=== PATIENT | female | born 1945 | race Caucasian/White ===

== ENCOUNTER 2016-09-29 09:15 | Inpatient (IN) | payer MEDICARE ==
[2016-09-29] VITALS (14 sets, daily range): BP systolic 101–113; BP diastolic 61–74; PULSE 68–84; RESP 18–24; TEMP 97.8–98.1; O2SAT 96–100
[~2016-09-29] VITALS: Ht 172.7 cm; Wt 68.3 kg
[~2016-09-29 09:15] MED LIST: ADVI200T16 PO; ALDA25TA OR; ALEN70TA39 OR; AMOX500T PO; ASPI81TA11 OR; B COTAB3 PO; CALC-187 PO; CARV12.5 PO; CETI10 PO; COQ1200C3 OR; CRES10TA PO; FOSI10TA4 PO; FURO1TAB93 OR; GLUCTAB PO; LEVO.1 PO; MULTCAP2 OR; PROZ20CA11 PO; VALT1TAB26 PO; VITA200017 PO; VITATAB11 PO
[2016-09-29] MEDS ORDERED: ALPR0.5T3 PO (09:35)
[2016-09-29] MEDS ORDERED: AMIO200T PO ×2 (09:35→10:06)
--- NOTE | 2016-09-29 09:51 | PD ---
HPI Chief Complaint: General Weakness Time Seen by Provider: 09:49 Travel History International Travel<30 days: No Contact w/Intl Traveler<30days: No Traveled to known affect area: No History of Present Illness HPI 71-year-old female with history of bilateral mastectomy secondary to breast cancer, CHF secondary to valvular disease related to chemotherapy, new onset diabetes, currently awaiting evaluation for cardiac transplant, follows up with Dr. Nieves for cardiology, presents to the ER today for several days a worsening in shortness of breath, leg swelling, and general weakness. She had talked to Dr. Nieves and he told her to come in for further evaluation. She denies any fevers, chest pains, or any other symptoms. Modifying Factors: None Associated Signs & Symptoms: Shortness of breath, dyspnea on exertion, leg swelling bilaterally, general weakness Risk Factors: Long history of CHF, being evaluated for cardiac transplant PFSH Past Medical History Hx Anticoagulant Therapy: Yes Arthritis: Yes Asthma: No Atrial Fibrillation: Yes Autoimmune Disease: No Blood Disorders: No Anxiety: No Depression: No Heart Rhythm Problems: Yes Cancer: Yes (BREAST ) Cardiac Catheterization: Yes (08/06) Cardiomyopathy: Yes (IDIOPATHIC DIALATED CARDIOMYOPATHY) Cardiovascular Problems: Yes High Cholesterol: No Chemotherapy: Yes Chest Pain: Yes Congestive Heart Failure: Yes COPD: Yes Cerebrovascular Accident: No Coronary Artery Disease: Yes (2-D ECHO 08/13/06 WITH EF 25) Diabetes: Yes Patient Takes Glucophage: Yes Diminished Hearing: No Endocrine: Yes Gastrointestinal Disorders: No GERD: No Glaucoma: No Genitourinary: No Headaches: Yes Hepatitis: No Hiatal Hernia: No Heparin Induced Thrombocytopen: No Hypertension: No Immune Disorder: No Implanted Vascular Access Dvce: No Kidney Stones: No Medical other: Yes (HIGH CHOLESTEROL) Musculoskeletal: No Neurologic: No Psychiatric: Yes (DEPRESSION ,ANXIETY) Reproductive: No Respiratory: Yes Migraines: Yes Myocardial Infarction: No Radiation Therapy: Yes Renal Failure: No Seizures: No Sickle Cell Disease: No Sleep Apnea: No Thyroid Disease: Yes (HYPO) Ulcer: No Influenza Vaccination: Yes ?: Not Past Surgical History Abdominal Surgery: Yes (APPENDECTOMY, EXP LAP FOR RUPURED TUBAL PREGNANCIES) AICD: Yes Appendectomy: Yes Arteriovenous Shunt: No Cardiac Surgery: No (AICD,PACER) Cholecystectomy: Yes Ear Surgery: No Endocrine Surgery: No Eye Surgery: No Genitourinary Surgery: No Gynecologic Surgery: Yes (TOTAL ABDOMINAL HYSTERECTOMY WITY SALP AND OOPERECTOMIES) Hysterectomy: Yes Insulin Pump: No Joint Replacement: Yes (LT TOTAL HIP) Mastectomy: Yes (BILAT MAST, NO LYMPH LEFT) Neurologic Surgery: No Oral Surgery: Yes (TONSILLECTOMY) Pacemaker: Yes Thoracic Surgery: Yes (AICD,PACER) Tonsillectomy: Yes Tympanostomy Tube: Yes Other Surgery: Yes Social History Alcohol Use: No Tobacco Use: No Substance Use: No Allergies-Medications (Allergen,Severity, Reaction): Coded Allergies: Codeine (Verified Allergy, Severe, NAUSEA, 09/29/16) Epinephrine (Verified Allergy, Severe, PVC'S, 09/29/16) Uncoded Allergies: PAPER TAPE (Allergy, Severe, BLISTERS, 02/03/13) Reported Meds & Prescriptions Reported Meds & Active Scripts Active Reported Zzzquil (Diphenhydramine (Sleep)) 25 Mg Cap 25 Mg PO HS PRN Nasonex Nasal Quentin (Mometasone Furoate) 50 Mcg/Act Naspr 2 Quentin EACH NARE DAILY PRN Mucinex DM Maximum Strength (Dextromethorphan-Guaifenesin ER 12 HR) 60-1,200 Mg Tab 1 Tab PO DIRECTED PRN K-Tab (Potassium Chloride) 10 Meq Tab 10 Meq PO BID Digoxin 0.125 Mg Tab 0.125 Mg PO DAILY Eliquis (Apixaban) 2.5 Mg Tab 2.5 Mg PO BID Amiodarone (Amiodarone HCl) 200 Mg Tab 200 Mg PO DAILY Valtrex (Valacyclovir HCl) 1 Gm Tab 1,000 Mg PO DAILY PRN Synthroid (Levothyroxine Sodium) 112 Mcg Tab 112 Mcg PO DAILY Spironolactone 25 Mg Tab 25 Mg PO HS Metformin ER (Metformin HCl) 500 Mg Jana 500 Mg PO DAILY PC @1800 With evening meal Lasix (Furosemide) 40 Mg Tab 40 Mg PO BID Co Q-10 (Coenzyme Q10 (Ubidecarenone)) 200 Mg Cap 200 Mg PO HS Crestor (Rosuvastatin Calcium) 10 Mg Tab 10 Mg PO HS D3 2000 (Cholecalciferol) 2,000 Unit Tab 2,000 Units PO DAILY Zyrtec Allergy (Cetirizine HCl) 10 Mg Tab 10 Mg PO DAILY PRN Carvedilol 6.25 Mg Tab 6.25 Mg PO BID Tylenol Pm Extra Strength (Diphenhydramine-Acetaminophen) 25-500 Mg Tab 1 Tab PO HS PRN Alprazolam 0.5 Mg Tab 0.5 Mg PO DIRECTED PRN Review of Systems Except as stated in HPI: all other systems reviewed are Neg Physical Exam Narrative GENERAL: Well-nourished, well-developed elderly white female patient in mild respiratory distress, awake, oriented 3. SKIN: Warm and dry. Pale appearing. HEAD: Normocephalic. EYES: No scleral icterus. No injection or drainage. NECK: Supple, trachea midline. CARDIOVASCULAR: Regular rate and rhythm without murmurs, gallops, or rubs. RESPIRATORY: Breath sounds equal and decreased at the bases bilaterally. Mild accessory muscle use. GASTROINTESTINAL: Abdomen soft, non-tender, nondistended. MUSCULOSKELETAL: No cyanosis. Bilateral pitting edema the legs. BACK: Nontender without obvious deformity. No CVA tenderness. Data Data Last Documented VS Vital Signs Date Time Temp Pulse Resp B/P Pulse Ox O2 Delivery O2 Flow Rate FiO2 09/29/16 11:09 69 18 107/61 98 Nasal Cannula 2 09/29/16 09:16 97.8 Orders Electrocardiogram (09/29/16 ) Complete Blood Count With Diff (09/29/16 09:34) Comprehensive Metabolic Panel (09/29/16 09:34) Magnesium (Mg) (09/29/16 09:34) B-Type Natriuretic Peptide (09/29/16 09:34) Ckmb (Isoenzyme) Profile (09/29/16 09:34) Troponin I (09/29/16 09:34) Act Partial Throm Time (Ptt) (09/29/16 09:34) Prothrombin Time / Inr (Pt) (09/29/16 09:34) Urinalysis - C+S If Indicated (09/29/16 09:34) Chest, Single Ap (09/29/16 09:34) Ecg Monitoring (09/29/16 09:34) Iv Access Insert/Monitor (09/29/16 09:34) Oximetry (09/29/16 09:34) Sodium Chloride 0.9% Flush (Ns Flush) (09/29/16 09:45) Potassium Chloride Powder (Kcl Powder) (09/29/16 10:45) Ns + Kcl 20 Meq Inj (Ns + Kcl 20 Meq Inj (09/29/16 10:45) Furosemide Inj (Lasix Inj) (09/29/16 10:45) Admit Order (Ed Use Only) (09/29/16 10:56) Consult Cardiology (09/29/16 ) Labs Laboratory Tests Test 09/29/16 09:35 White Blood Count 7.0 TH/MM3 Red Blood Count 4.19 MIL/MM3 Hemoglobin 11.9 GM/DL Hematocrit 35.7 % Mean Corpuscular Volume 85.2 FL Mean Corpuscular Hemoglobin 28.5 PG Mean Corpuscular Hemoglobin 33.4 % Concent Red Cell Distribution Width 23.3 % Platelet Count 179 TH/MM3 Mean Platelet Volume 9.5 FL Neutrophils (%) (Auto) 60.6 % Lymphocytes (%) (Auto) 31.0 % Monocytes (%) (Auto) 8.0 % Eosinophils (%) (Auto) 0.0 % Basophils (%) (Auto) 0.4 % Neutrophils # (Auto) 4.3 TH/MM3 Lymphocytes # (Auto) 2.2 TH/MM3 Monocytes # (Auto) 0.6 TH/MM3 Eosinophils # (Auto) 0.0 TH/MM3 Basophils # (Auto) 0.0 TH/MM3 CBC Comment DIFF FINAL Differential Comment Prothrombin Time 14.7 SEC Prothromb Time International 1.3 RATIO Ratio Activated Partial 27.3 SEC Thromboplast Time Sodium Level 136 MEQ/L Potassium Level 3.3 MEQ/L Chloride Level 96 MEQ/L Carbon Dioxide Level 28.4 MEQ/L Anion Gap 12 MEQ/L Blood Urea Nitrogen 28 MG/DL Creatinine 1.64 MG/DL Estimat Glomerular Filtration 31 ML/MIN Rate Random Glucose 103 MG/DL Calcium Level 8.6 MG/DL Magnesium Level 2.1 MG/DL Total Bilirubin 2.4 MG/DL Aspartate Amino Transf 37 U/L (AST/SGOT) Alanine Aminotransferase 30 U/L (ALT/SGPT) Alkaline Phosphatase 183 U/L Total Creatine Kinase 48 U/L Troponin I 0.03 NG/ML B-Type Natriuretic Peptide 3211 PG/ML Total Protein 7.4 GM/DL Albumin 3.1 GM/DL MDM Medical Decision Making Medical Screen Exam Complete: Yes Emergency Medical Condition: Yes Medical Record Reviewed: Yes Interpretation(s) EKG shows atrial paced rhythm at a rate of 69 bpm with no signs of acute ST-T changes. Laboratory Tests Test 09/29/16 09:35 Red Cell Distribution Width 23.3 % (11.6-17.2) Prothrombin Time 14.7 SEC (9.8-11.6) Potassium Level 3.3 MEQ/L (3.5-5.1) Chloride Level 96 MEQ/L (98-107) Blood Urea Nitrogen 28 MG/DL (7-18) Creatinine 1.64 MG/DL (0.50-1.00) Estimat Glomerular Filtration 31 ML/MIN (>89) Rate Total Bilirubin 2.4 MG/DL (0.2-1.0) Alkaline Phosphatase 183 U/L (45-117) B-Type Natriuretic Peptide 3211 PG/ML (0-100) Albumin 3.1 GM/DL (3.4-5.0) Last 24 hours Impressions Chest X-Ray 09/29/16 0934 Signed Impressions: Service Date/Time: Thursday, September 29, 2016 09:56 - CONCLUSION: 1. Mild right lower lung infiltrate. 2. Interstitial changes bilaterally suggestive of chronic interstitial disease. However, some mild pulmonary edema can also have this appearance. There are no prior studies for comparison. Audi Crooks MD Differential Diagnosis Leg swelling, general weakness, shortness of breath and dyspnea on exertionCHF exacerbation versus electrolyte issues versus symptomatic anemia versus sepsis Narrative Course Exam, lab work, chest x-ray indicative of underlying CHF. Her potassium is also mildly low. Potassium was given in the ER IV and by mouth and Lasix was initiated. At this point, my plan would be to admit her for further treatment. The case is discussed with Dr. Rabago for admission. Consult was placed for Dr. Nieves, patient's molder machine. Diagnosis Primary Impression: CHF exacerbation Admitting Information Admitting Physician Requests: Admit Romero Rodgers MD Sep 29, 2016 09:51
[2016-09-29 09:53] LABS: AUTOMATED NEUTROPHIL # 4.3 TH/MM3 (1.8-7.7); BASOPHIL % 0.4 % (0.0-2.0); HEMATOCRIT 35.7 % (35.0-46.0); HEMO FLAGS DIFF FINAL; LYMPHOCYTE # 2.2 TH/MM3 (1.0-4.8); MEAN CELL VOLUME 85.2 FL (80.0-100.0); MEAN CORPUSCULAR HEMOGLOBIN 28.5 PG (27.0-34.0); MEAN CORPUSCULAR HGB CONC 33.4 % (32.0-36.0); NEUT % 60.6 % (16.0-70.0); PLATELET COUNT 179 TH/MM3 (150-450); RED BLOOD COUNT 4.19 MIL/MM3 (4.00-5.30); RED CELL DISTRIBUTION WIDTH 23.3 % (11.6-17.2)
[2016-09-29 10:05] LABS: ANION GAP 12 MEQ/L (5-15); APTT (PATIENT) 27.3 SEC (24.3-30.1); AST (GOT) 37 U/L (15-37); BICARBONATE 28.4 MEQ/L (21.0-32.0); BLOOD UREA NITROGEN 28 MG/DL (7-18); CHLORIDE 96 MEQ/L (98-107); GLOMERULAR FILTRATION RATE 31 ML/MIN (>89); INTERNATIONAL NORMALIZED RATIO 1.3 RATIO; MAGNESIUM 2.1 MG/DL (1.5-2.5); POTASSIUM 3.3 MEQ/L (3.5-5.1); PROTHROMBIN TIME - PATIENT 14.7 SEC (9.8-11.6); SODIUM (NA) 136 MEQ/L (136-145)
[2016-09-29] MEDS ORDERED: APIX2.5T PO (10:06)
[2016-09-29] MEDS ORDERED: DIPH1TAB36 PO (10:06)
[2016-09-29] MEDS ORDERED: SPIR25TA PO (10:06)
[2016-09-29] MEDS ORDERED: CHOL1TAB29 PO (10:06)
[2016-09-29] MEDS ORDERED: VALT1TAB PO (10:06)
[2016-09-29] MEDS ORDERED: SYNT112T PO (10:06)
[2016-09-29] MEDS ORDERED: CARV6.252 PO (10:06)
[2016-09-29] MEDS ORDERED: ROSU10 PO (10:06)
[2016-09-29] MEDS ORDERED: METF500T4 PO (10:06)
[2016-09-29] MEDS ORDERED: ZYRT10TA PO (10:06)
[2016-09-29] MEDS ORDERED: FURO1TAB60 PO (10:06)
[2016-09-29] MEDS ORDERED: CO Q200C PO (10:06)
[2016-09-29] MEDS ORDERED: K-TA10TA PO (10:07)
[2016-09-29] MEDS ORDERED: MOME17I EACH NARE (10:07)
[2016-09-29] MEDS ORDERED: DEXT1TAB18 PO (10:07)
[2016-09-29] MEDS ORDERED: DIGO0.12 PO (10:07)
[2016-09-29] MEDS ORDERED: DIPH-148 PO (10:07)
[2016-09-29 10:09] LABS: ALKALINE PHOSPHATASE 183 U/L (45-117); ALT (GPT) 30 U/L (10-53); TOTAL BILIRUBIN ADULT 2.4 MG/DL (0.2-1.0)
--- NOTE | 2016-09-29 10:26 | RADRPT ---
EXAM DATE/TIME: 09/29/2016 09:56 [facility] COMPARISON: No previous studies available for comparison. INDICATIONS : Shortness of breath and generalized weakness. Patient waiting for heart transplant. MEDICAL HISTORY : Chronic obstructive pulmonary disease. Diabetes mellitus type II. Carcinoma, breast. A-fib. Coron herbert artery disease. Congesive heart failure. SURGICAL HISTORY : Pacemaker. Mastectomy, bilateral. ENCOUNTER: Initial ACUITY: 4 - 6 days PAIN SCORE: 0/10 LOCATION: Bilateral chest FINDINGS: A single view of the chest demonstrates a mild infiltrate in the right lung base. There does appear t o be some interstitial changes bilaterally.. The cardiomediastinal contours are unremarkable. There is a pacemaker overlying the left chest. This obscures the left lung base. Osseous structures are int act. CONCLUSION: 1. Mild right lower lung infiltrate. 2. Interstitial changes bilaterally suggestive of chronic interstitial disease. However, some mild pu lmonary edema can also have this appearance. There are no prior studies for comparison. Audi Crooks MD on September 29, 2016 at 10:23 Board Certified Radiologist. This report was verified electronically.
[2016-09-29 10:40] LABS: CREATINE KINASE 48 U/L (26-192)
[2016-09-29] MEDS ORDERED: NS + KCL 20 MEQ INJ 1,000 ML IV ONE (10:45)
[2016-09-29] MEDS ORDERED: POTASSIUM CHLORIDE 20 MEQ PWD PACKET PO ONE (10:45)
[2016-09-29] MEDS ORDERED: FUROSEMIDE 40 MG/4 ML VIAL IV PUSH ONE (10:45)
[2016-09-29 11:26] LABS: BLOOD, URINE NEG (NEG); GLUCOSE,URINE NEG (NEG); HYALINE CAST, URINE 1 /lpf (RARE); KETONE, URINE NEG (NEG); MUCUS URINE FEW /lpf (OCC); NITRITE,URINE NEG (NEG); URINE COLOR YELLOW (YELLW/STRAW)
[2016-09-29 11:27] LABS: COMMENT (UR) CULT NOT INDICATED; CULTURE IF INDICATED CULT NOT INDICATED
--- NOTE | 2016-09-29 13:36 | HHI.HP ---
HPI Service [facility] Hospitalists Primary Care Physician Katia Osborne MD Admission Diagnosis CHF exacerbation/hypokalemia Chief Complaint: sob/edema Travel History International Travel<30 Days: No Contact w/Intl Traveler <30 Da: No Traveled to Known Affected Are: No History of Present Illness Pt presents with 1 day complaint of worsening lower ext edema to thighs, sob lying flat and with exertion. She gives hx of dilated cardiomyopathy and aortic valve dz and being evaluated by [facility] for transplant. follows with dr Nieves. She has received iv lasix and kcl here in ED. no cp or palpitations. taking all of her meds at home. Review of Systems Other more orthopnea. haley, leg edema shane x 1 day. Past Family Social History Past Medical History systolic chf. echo05/17: mild dilated left ventricle. mild left ventricle hypertrophy, ef 20-25%. mild mvr. . pap 57 and mod pulmonary htn. from chemo afib dm 2 biv aicd hypothyroidism eulalio. no cpap chronic 2lnc at night. breast ca. local. left. 2003. s/p shane mastectomy and chemo appe willard/bso. fibroids left hip fx s/p john Reported Medications Zzzquil (Diphenhydramine (Sleep)) 25 Mg Cap 25 Mg PO HS PRN Nasonex Nasal [place] (Mometasone Furoate) 50 Mcg/Act Naspr 2 [place] EACH NARE DAILY PRN Mucinex DM Maximum Strength (Dextromethorphan-Guaifenesin ER 12 HR) 60-1,200 Mg Tab 1 Tab PO DIRECTED PRN K-Tab (Potassium Chloride) 10 Meq Tab 10 Meq PO BID Digoxin 0.125 Mg Tab 0.125 Mg PO DAILY...qod per records. Eliquis (Apixaban) 2.5 Mg Tab 2.5 Mg PO BID Amiodarone (Amiodarone HCl) 200 Mg Tab 200 Mg PO DAILY Valtrex (Valacyclovir HCl) 1 Gm Tab 1,000 Mg PO DAILY PRN Synthroid (Levothyroxine Sodium) 112 Mcg Tab 112 Mcg PO DAILY Spironolactone 25 Mg Tab 25 Mg PO HS Metformin ER (Metformin HCl) 500 Mg Jana 500 Mg PO DAILY PC @1800 With evening meal Lasix (Furosemide) 40 Mg Tab 40 Mg PO BID Co Q-10 (Coenzyme Q10 (Ubidecarenone)) 200 Mg Cap 200 Mg PO HS Crestor (Rosuvastatin Calcium) 10 Mg Tab 10 Mg PO HS D3 2000 (Cholecalciferol) 2,000 Unit Tab 2,000 Units PO DAILY Zyrtec Allergy (Cetirizine HCl) 10 Mg Tab 10 Mg PO DAILY PRN Carvedilol 6.25 Mg Tab 6.25 Mg PO BID Tylenol Pm Extra Strength (Diphenhydramine-Acetaminophen) 25-500 Mg Tab 1 Tab PO HS PRN Alprazolam 0.5 Mg Tab 0.5 Mg PO DIRECTED PRN Allergies: Coded Allergies: Codeine (Verified Allergy, Severe, NAUSEA, 09/29/16) Epinephrine (Verified Allergy, Severe, PVC'S, 09/29/16) Uncoded Allergies: PAPER TAPE (Allergy, Severe, BLISTERS, 02/03/13) Family History nc Social History quit tob/etoh 1989 Physical Exam Vital Signs nad heart reg. loud systolic murmer over lusb lung scattered crackles abd s/nt ext pitting edema ankles/legs/thighs jvd noted Vital Signs Date Time Temp Pulse Resp B/P Pulse Ox O2 Delivery O2 Flow Rate FiO2 09/29/16 13:00 72 18 101/65 99 Nasal Cannula 2 09/29/16 12:00 74 18 105/67 99 Nasal Cannula 2 09/29/16 11:09 69 18 107/61 98 Nasal Cannula 2 09/29/16 09:46 100 Nasal Cannula 2 09/29/16 09:16 97.8 72 24 113/74 96 Room Air Laboratory Laboratory Tests Test 09/29/16 09/29/16 09:35 11:00 White Blood Count 7.0 Red Blood Count 4.19 Hemoglobin 11.9 Hematocrit 35.7 Mean Corpuscular Volume 85.2 Mean Corpuscular Hemoglobin 28.5 Mean Corpuscular Hemoglobin 33.4 Concent Red Cell Distribution Width 23.3 Platelet Count 179 Mean Platelet Volume 9.5 Neutrophils (%) (Auto) 60.6 Lymphocytes (%) (Auto) 31.0 Monocytes (%) (Auto) 8.0 Eosinophils (%) (Auto) 0.0 Basophils (%) (Auto) 0.4 Neutrophils # (Auto) 4.3 Lymphocytes # (Auto) 2.2 Monocytes # (Auto) 0.6 Eosinophils # (Auto) 0.0 Basophils # (Auto) 0.0 CBC Comment DIFF FINAL Differential Comment Prothrombin Time 14.7 Prothromb Time International 1.3 Ratio Activated Partial 27.3 Thromboplast Time Sodium Level 136 Potassium Level 3.3 Chloride Level 96 Carbon Dioxide Level 28.4 Anion Gap 12 Blood Urea Nitrogen 28 Creatinine 1.64 Estimat Glomerular Filtration 31 Rate Random Glucose 103 Calcium Level 8.6 Magnesium Level 2.1 Total Bilirubin 2.4 Aspartate Amino Transf 37 (AST/SGOT) Alanine Aminotransferase 30 (ALT/SGPT) Alkaline Phosphatase 183 Total Creatine Kinase 48 Troponin I 0.03 B-Type Natriuretic Peptide 3211 Total Protein 7.4 Albumin 3.1 Urine Color YELLOW Urine Turbidity HAZY Urine pH 6.0 Urine Specific [place] 1.013 Urine Protein NEG Urine Glucose (UA) NEG Urine Ketones NEG Urine Occult Blood NEG Urine Nitrite NEG Urine Bilirubin NEG Urine Urobilinogen 2.0 Urine Leukocyte Esterase SMALL Urine RBC 1 Urine WBC 2 Urine Hyaline Casts 1 Urine Mucus FEW Microscopic Urinalysis Comment CULT NOT INDICATED Result Diagram: 09/29/1693409/29/16934 Assessment and Plan Problem List: (1) CHF exacerbation Status: Acute Plan: Pt with hx breast ca/chemo 2002 and developed dilated nonischemic cardiomyopathy and valvular heart dz. she has biv aicd and afib hx. Pt reports being evaluated at [facility] for heart tx. geraldine probably related to heart failure. hypokalemia Presents with chf exacerbation with edema/haley/orthopnea cardiogy consulted iv lasix diuresis replace kcl daily weight. output telemetry cont bb. dig. amio..anticoaguation. ssi. hold oha (2) Hypokalemia Status: Acute Plan: see above (3) GERALDINE (acute kidney injury) Status: Acute Plan: see above (4) DM (diabetes mellitus) Status: Chronic Plan: see above (5) EULALIO (obstructive sleep apnea) Status: Chronic (6) History of breast cancer Status: Chronic (7) Afib Status: Chronic (8) Hypothyroid Status: Chronic Physician Certification 2 Midnight Certification Type: Admission for Inpatient Services Order for Inpatient Services 3The services are ordered in accordance with Medicare regulations or non- Medicare payer requirements, as applicable. In the case of services not specified as inpatient-only, they are appropriately provided as inpatient services in accordance with the 2-midnight benchmark. Estimated LOS (days): 3 3 days is the estimated time the patient will need to remain in the hospital, assuming treatment plan goals are met and no additional complications. Post-Hospital Plan: Home Bret Rabago MD Sep 29, 2016 13:36
[2016-09-29] MEDS ORDERED: CETIRIZINE HCL 10 MG TAB PO PRN (13:45)
[2016-09-29] MEDS ORDERED: ACETAMINOPHEN 500 MG CPLT PO PRN (13:45)
[2016-09-29] MEDS ORDERED: ALPRAZolam 0.5 MG TAB PO PRN (13:45)
[2016-09-29] MEDS ORDERED: diphenhydrAMINE HCL 25 MG CAP PO PRN (14:15)
[2016-09-29] MEDS: INSULIN ASPART SUPPLEMENTAL SCALE SQ SCH ×2 (16:00→20:39)
--- NOTE | 2016-09-29 18:05 | EKG ---
Date Performed: 09/29/2016 Time Performed: 09:38:16 PTAGE: 71 years EKG: AV PACED RHYTHM PREVIOUS TRACING : 02/11/2008 22.28 Compared to previous tracing, AV pacing is now presen t. DOCTOR: Dennis Cooper Interpretating Date/Time 09/29/2016 18:03:24
[2016-09-29 18:28] LABS: BICARBONATE 26.8 MEQ/L (21.0-32.0); POTASSIUM 3.6 MEQ/L (3.5-5.1)
[2016-09-29] MEDS: CARVEDILOL 6.25 MG TAB PO SCH (20:39)
[2016-09-29] MEDS: APIXABAN 2.5 MG TABLET PO SCH (20:39)
[2016-09-29] MEDS: SPIRONOLACTONE 25 MG TAB PO SCH (20:39)
[2016-09-29] MEDS: ATORVASTATIN 20 MG TAB PO SCH (20:39)
[2016-09-29] MEDS ORDERED: FUROSEMIDE 20 MG/2 ML VIAL IV PUSH ONE (21:00)
[2016-09-29] MEDS ORDERED: POTASSIUM CHLORIDE 20 MEQ CONTROLLED RELEASE TAB PO ONE (21:00)
[2016-09-30] VITALS (28 sets, daily range): BP systolic 84–105; BP diastolic 51–74; PULSE 67–81; RESP 18–20; TEMP 96.2–98; O2SAT 93–100
[2016-09-30] MEDS: INSULIN ASPART SUPPLEMENTAL SCALE SQ SCH ×4 (06:47→20:39)
[2016-09-30 07:30] LABS: BICARBONATE 27.5 MEQ/L (21.0-32.0); MAGNESIUM 2.2 MG/DL (1.5-2.5); POTASSIUM 3.6 MEQ/L (3.5-5.1)
[2016-09-30] MEDS: AMIODARONE 200 MG TAB PO SCH (08:33)
[2016-09-30] MEDS: DIGOXIN 0.125 MG TAB PO SCH (08:33)
[2016-09-30] MEDS: CARVEDILOL 6.25 MG TAB PO SCH ×2 (08:33→20:39)
[2016-09-30] MEDS: POTASSIUM CHLORIDE 20 MEQ CONTROLLED RELEASE TAB PO SCH ×2 (08:33→20:39)
[2016-09-30] MEDS: FUROSEMIDE 20 MG/2 ML VIAL IV PUSH SCH ×2 (08:33→18:00)
[2016-09-30] MEDS: LEVOTHYROXINE SODIUM 112 MCG TAB PO SCH (08:33)
[2016-09-30] MEDS: APIXABAN 2.5 MG TABLET PO SCH ×2 (08:34→20:39)
--- NOTE | 2016-09-30 08:42 | MB ---
cc: LOR RIVERA MD DATE OF CONSULTATION: 09/29/2016 DATE OF : 1945 REASON FOR CONSULTATION: Heart failure. HISTORY OF PRESENT ILLNESS 71-year-old female with past medical history significant for breast cancer, heart failure secondary to valvular disease, related to chemotherapy, new onset diabetes, LV systolic dysfunction with a status post AICD placement. The patient presents to the hospital with generalized right leg weakness for a day. Also some mild shortness of breath on exertion with peripheral edema. She is a patient of Dr. Nieves. She denies fevers, chills, nausea, vomiting, diarrhea , chest pain, palpitations, syncope, lightheadedness or any bleeding issues. She states that she has an appointment to go to [facility] for evaluation for cardiac transplantation. REVIEW OF SYSTEMS: Negative except for what is mentioned in the HPI. PAST MEDICAL HISTORY: Asthma. Coronary artery disease, hypothyrodism, breast cancer, atrial fibrillation. PAST SURGICAL HISTORY Mastectomy and a biventricular pacemaker defibrillator. FAMILY HISTORY The patient's mother from sepsis. The patient's father of coronary artery disease, CVA, and questionable polycystic kidney disease. She also has a brother with coronary artery disease, polycystic kidney disease and hypertension. SOCIAL HISTORY: Negative for tobacco or drug use. ALLERGIES: CODEINE CARDIAC HOME MEDICATIONS 1. Amiodarone 200 mg p.o. daily 2. Eliquis 2.5 mg p.o. b.i.d. 3. Coreg 6.25 mg p.o. b.i.d. 4. Digoxin 0.125 milligrams p.o. daily. 5. Lasix 40 milligrams p.o. b.i.d. 6. Crestor 10 milligrams p.o. daily 7. Spironolactone 25 milligrams p.o. daily PHYSICAL EXAMINATION: VITAL SIGNS: Temperature 97, pulse 72, respiratory rate 18, blood pressure 107/ 61. O2 sat is 98% on two liters nasal cannula. GENERAL: She is awake, alert, oriented x3 in no acute distress. Neck: No JVD, no carotid bruits. Heart: Regular rate and rhythm. No murmurs, rubs or gallop, AICD on left chest. Lungs: Clear to auscultation bilaterally. No wheezes, rhonchi or rales. Abdomen: Soft, nontender, nondistended. Extremities: +2 edema bilaterally. Pulses throughout. No cyanosis. DATA CBC: hemoglobin 11, hematocrit 35, platelet count 179, INR 1.3. Chemistries: Sodium 136, potassium 3.3, BUN 28, creatinine 1.6. BNP 3211, troponin 0.03. X-RAYS: Chest x-ray. Mild right lower lobe infiltrate, mild pulmonary edema. cardiac monitor technician shows atrial fibrillation with controlled ventricular response. ASSESSMENT/PLAN 71-year-old female who came to the hospital complaining of right leg weakness for a day, and also signs and symptoms of acute on chronic systolic heart failure, consulted to cardiology for further management and evaluation of heart failure. She remains afebrile and hemodynamically stable. She is getting IV Lasix in the emergency department. She feels better from her shortness of breath, however, she still has some leg edema. At this point I will continue IV diuresis. I will continue his home medications for heart failure. She will need strict input and output, daily weight, and low sodium diet. She reports weakness in the right leg that she relates to his hypokalemia reporting that this has happened in the past. However, with her risk factors, I think it is reasonable to get a head CT to rule out CVA. RECOMMENDATIONS 1. IV diuresis. 2. Continue amiodarone, Eliquis, Coreg, spironolactone and Crestor. 3. Replete potassium 4. Consider head CT without contrast to rule out severe stroke in the setting of right leg weakness. Thank you for the opportunity to take part in the care of this patient. Dr. Nieves will be back on service tomorrow. MD ELENI Garcia/ALFREDO /1:01 PM /8:40 AM JOO
--- NOTE | 2016-09-30 16:32 | HHI.PR ---
Subjective Remarks some improvement in LE edema from admission. Denies SOB. Pt denies dizziness. Objective Vitals Vital Signs Date Time Temp Pulse Resp B/P Pulse Ox O2 Delivery O2 Flow Rate FiO2 09/30/16 12:34 84/51 09/30/16 12:00 72 09/30/16 11:15 96.2 73 20 87/55 98 09/30/16 11:00 73 09/30/16 10:00 81 09/30/16 09:00 72 09/30/16 08:00 72 09/30/16 07:30 97.4 69 18 101/74 99 09/30/16 07:00 Nasal Cannula 2.00 09/30/16 07:00 69 09/30/16 06:00 68 09/30/16 05:00 67 09/30/16 04:00 69 09/30/16 04:00 Nasal Cannula 2.00 09/30/16 04:00 97.8 69 18 101/68 100 09/30/16 03:00 67 09/30/16 02:00 68 09/30/16 01:00 67 09/30/16 00:00 Nasal Cannula 2.00 09/30/16 00:00 98.0 69 18 101/67 98 09/30/16 00:00 69 09/29/16 23:00 68 09/29/16 22:00 71 09/29/16 21:00 70 09/29/16 20:00 72 09/29/16 20:00 Nasal Cannula 2.00 09/29/16 20:00 98.1 72 20 109/71 99 09/29/16 18:00 72 09/29/16 17:00 69 09/29/16 09/29/16 09/30/16 15:00 23:00 07:00 Intake Total 480 ml Output Total 1000 ml Balance -520 ml Intake Oral 480 ml Output Urine Total 1000 ml # Bowel Movements 0 Result Diagram: 09/29/1635 09/30/16 0515 Imaging Last Impressions Chest X-Ray 09/29/16 0934 Signed Impressions: Service Date/Time: Thursday, September 29, 2016 09:56 - CONCLUSION: 1. Mild right lower lung infiltrate. 2. Interstitial changes bilaterally suggestive of chronic interstitial disease. However, some mild pulmonary edema can also have this appearance. There are no prior studies for comparison. Audi Crooks MD Objective Remarks GENERAL: This is a well-nourished, well-developed patient, in no apparent distress. CARDIOVASCULAR: Regular rate and rhythm without murmurs, gallops, or rubs. RESPIRATORY: Clear to auscultation. Breath sounds equal bilaterally. No wheezes , rales, or rhonchi. GASTROINTESTINAL: Abdomen soft, non-tender, nondistended. Normal active bowel sounds MUSCULOSKELETAL: Extremities without clubbing, cyanosis, or edema. NEURO: Alert & Oriented x4 to person, place, time, situation. Moves all ext x4 A/P Problem List: (1) CHF exacerbation Status: Acute Plan: Pt with hx breast ca/chemo 2002 and developed dilated nonischemic cardiomyopathy and valvular heart dz. she has biv aicd and afib hx. Pt reports being evaluated at [facility] for heart tx. anthony probably related to heart failure. hypokalemia Presents with chf exacerbation with edema/haley/orthopnea - comgmt with Cardiology - IV lasix/ KCL - cont bb. dig. amio..anticoaguation. - observe clinical response - repeat BMP, CXR in AM (2) Weakness of right lower extremity Status: Acute Plan: - new onset - obtain MRI brain to evaluate for ischemic event (3) DM (diabetes mellitus) Status: Chronic Plan: - OHA on hold - SSI (4) EULALIO (obstructive sleep apnea) Status: Chronic (5) History of breast cancer Status: Chronic (6) Afib Status: Chronic (7) Hypothyroid Status: Chronic Problem Qualifiers (1) DM (diabetes mellitus): Qualified Code: E11.8 - Type 2 diabetes mellitus with complication, without long-term current use of insulin (2) Hypothyroid: Qualified Code: E03.9 - Hypothyroidism, unspecified type Damion Livingston DO Sep 30, 2016 16:32
[2016-09-30] MEDS: SPIRONOLACTONE 25 MG TAB PO SCH (20:39)
[2016-09-30] MEDS: ATORVASTATIN 20 MG TAB PO SCH (20:39)
[2016-10-01] VITALS (22 sets, daily range): BP systolic 93–113; BP diastolic 57–72; PULSE 69–80; RESP 16–20; TEMP 97.3–97.7; O2SAT 74–100
[2016-10-01] MEDS: INSULIN ASPART SUPPLEMENTAL SCALE SQ SCH ×4 (06:01→21:00)
[2016-10-01 06:52] LABS: AUTOMATED NEUTROPHIL # 3.7 TH/MM3 (1.8-7.7); BASOPHIL # 0.1 TH/MM3 (0-0.2); BASOPHIL % 1.9 % (0.0-2.0); EOSINOPHIL % 0.3 % (0.0-4.0); HEMATOCRIT 34.2 % (35.0-46.0); HEMO FLAGS DIFF FINAL; LYMPH % 26.5 % (9.0-44.0); LYMPHOCYTE # 1.6 TH/MM3 (1.0-4.8); MEAN CORPUSCULAR HEMOGLOBIN 27.7 PG (27.0-34.0); MEAN CORPUSCULAR HGB CONC 32.3 % (32.0-36.0); MONO % 11.3 % (0.0-8.0); PLATELET COUNT 165 TH/MM3 (150-450); RED BLOOD COUNT 3.98 MIL/MM3 (4.00-5.30); RED CELL DISTRIBUTION WIDTH 23.8 % (11.6-17.2); WHITE BLOOD COUNT 6.1 TH/MM3 (4.0-11.0)
[2016-10-01 07:08] LABS: BICARBONATE 26.9 MEQ/L (21.0-32.0); MAGNESIUM 2.1 MG/DL (1.5-2.5); POTASSIUM 3.8 MEQ/L (3.5-5.1)
[2016-10-01] MEDS: APIXABAN 2.5 MG TABLET PO SCH ×2 (08:09→21:40)
[2016-10-01] MEDS: AMIODARONE 200 MG TAB PO SCH (08:10)
[2016-10-01] MEDS: POTASSIUM CHLORIDE 20 MEQ CONTROLLED RELEASE TAB PO SCH ×2 (08:10→21:39)
[2016-10-01] MEDS: LEVOTHYROXINE SODIUM 112 MCG TAB PO SCH ×2 (08:10→09:00)
[2016-10-01] MEDS: DIGOXIN 0.125 MG TAB PO SCH ×2 (08:10→09:00)
[2016-10-01] MEDS: CARVEDILOL 6.25 MG TAB PO SCH ×2 (08:10→21:00)
[2016-10-01] MEDS ORDERED: EPINEPHrine HCL (1:10,000) 1 MG/10 ML SYRINGE ONE ×2 (10:02→15:39)
[2016-10-01] MEDS: FUROSEMIDE 20 MG/2 ML VIAL IV PUSH SCH ×2 (10:29→18:18)
--- NOTE | 2016-10-01 10:55 | RADRPT ---
EXAM DATE/TIME: 10/01/2016 10:10 [facility] COMPARISON: Prior study 09/29/2016. INDICATIONS : Shortness of breath and cough. MEDICAL HISTORY : Chronic obstructive pulmonary disease. Diabetes mellitus type II. Carcin dimitris, breast. A-fib. Coronary artery disease. Congestive heart failure. SURGICAL HISTORY : Pacemaker. Mastectomy, bilateral. ENCOUNTER: Initial ACUITY: 4 - 6 days PAIN SCORE: 0/10 LOCATION: Bilateral chest FINDINGS: Two-view chest demonstrates there a left subclavian multi-lead pacer in good position. Heart remains slightly enlarged. There are small bilateral pleural effusions. No visible pneumothorax. Bone win dows are unremarkable. CONCLUSION: 1. Pacemaker in good position. 2. Small bilateral pleural effusions. Bernardino Duran MD on October 01, 2016 at 10:53 Board Certified Radiologist. This report was verified electronically.
--- NOTE | 2016-10-01 11:04 | HHI.PR ---
Subjective Remarks SOB improved from admission, but pt reports that she is still quite dyspneic at times. Also, pt now requiring 2L O2 by NC LE edema improved from admission but still some edema noted at her thighs. Objective Vitals Vital Signs Date Time Temp Pulse Resp B/P Pulse Ox O2 Delivery O2 Flow Rate FiO2 10/01/16 10:46 72 10/01/16 08:45 70 10/01/16 08:04 97.5 70 16 96/64 98 10/01/16 06:24 72 10/01/16 05:00 71 10/01/16 04:00 71 10/01/16 03:00 72 10/01/16 03:00 72 10/01/16 03:00 75 104/67 100 10/01/16 02:00 71 10/01/16 01:00 69 10/01/16 00:00 71 09/30/16 23:39 97.4 75 96/67 93 09/30/16 23:00 72 09/30/16 22:00 72 09/30/16 21:00 69 09/30/16 20:00 72 09/30/16 19:00 Room Air 09/30/16 19:00 97.4 72 18 105/68 96 09/30/16 19:00 74 09/30/16 18:00 72 09/30/16 17:00 72 09/30/16 16:00 80 09/30/16 15:00 97.7 73 20 97/58 98 09/30/16 15:00 71 09/30/16 14:00 79 09/30/16 13:00 72 09/30/16 12:34 84/51 09/30/16 12:00 72 09/30/16 11:15 96.2 73 20 87/55 98 09/30/16 11:00 73 09/30/16 09/30/16 10/01/16 15:00 23:00 07:00 Intake Total 480 ml 480 ml Output Total 900 ml 300 ml Balance -420 ml 180 ml Intake Oral 480 ml 480 ml Output Urine Total 900 ml 300 ml Result Diagram: 10/01/16 0444 10/01/16 0444 Imaging Last Impressions Chest X-Ray 09/29/16 0934 Signed Impressions: Service Date/Time: Thursday, September 29, 2016 09:56 - CONCLUSION: 1. Mild right lower lung infiltrate. 2. Interstitial changes bilaterally suggestive of chronic interstitial disease. However, some mild pulmonary edema can also have this appearance. There are no prior studies for comparison. Audi Crooks MD Objective Remarks GENERAL: This is a well-nourished, well-developed patient, in no apparent distress. CARDIOVASCULAR: Regular rate and rhythm without murmurs, gallops, or rubs. RESPIRATORY: Clear to auscultation. Breath sounds equal bilaterally. No wheezes , rales, or rhonchi. GASTROINTESTINAL: Abdomen soft, non-tender, nondistended. Normal active bowel sounds MUSCULOSKELETAL: Extremities without clubbing, cyanosis, or edema. NEURO: Alert & Oriented x4 to person, place, time, situation. Moves all ext x4 A/P Problem List: (1) CHF exacerbation Status: Acute Plan: - comgmt with Cardiology - Pt initially presented with chf exacerbation with edema/haley/orthopnea - Pt with hx breast ca/chemo 2002 and developed dilated nonischemic cardiomyopathy and valvular heart dz. she has biv aicd and afib hx. - Pt reports being evaluated at [facility] for heart tx. - clinically pt is much improved - BNP (09/29/16) 3211, BNP (10/01/16) 2940 - CXR (10/01/16) --> NO overt CHF - continue IV lasix/KCL for now - cont bb. dig. amio..anticoaguation. - observe clinical response - repeat BMP, BNP in AM (2) Weakness of right lower extremity Status: Acute Plan: - new onset - obtain MRI brain to evaluate for ischemic event (3) DM (diabetes mellitus) Status: Chronic Plan: - OHA on hold - SSI (4) Afib Status: Chronic Plan: - amiodarone, digoxin, eliquis, coreg (5) Hypothyroid Status: Chronic (6) EULALIO (obstructive sleep apnea) Status: Chronic (7) History of breast cancer Status: Chronic Problem Qualifiers (1) DM (diabetes mellitus): Qualified Code: E11.8 - Type 2 diabetes mellitus with complication, without long-term current use of insulin (2) Hypothyroid: Qualified Code: E03.9 - Hypothyroidism, unspecified type Damion Livingston DO Oct 01, 2016 11:04 Damion Livingston DO Oct 01, 2016 11:04
--- NOTE | 2016-10-01 12:59 | PD.CARD.PN ---
Subjective Subjective Remarks Tired. No significant dyspnea. Weight unchanged. Significant pedal edema, ascites and JVD Objective Vital Signs / I&O Vital Signs Date Time Temp Pulse Resp B/P Pulse Ox O2 Delivery O2 Flow Rate FiO2 10/01/16 11:40 72 10/01/16 10:46 72 10/01/16 08:45 70 10/01/16 08:04 97.5 70 16 96/64 98 10/01/16 06:24 72 10/01/16 05:00 71 10/01/16 04:00 71 10/01/16 03:00 72 10/01/16 03:00 72 10/01/16 03:00 75 104/67 100 10/01/16 02:00 71 10/01/16 01:00 69 10/01/16 00:00 71 09/30/16 23:39 97.4 75 96/67 93 09/30/16 23:00 72 09/30/16 22:00 72 09/30/16 21:00 69 09/30/16 20:00 72 09/30/16 19:00 Room Air 09/30/16 19:00 97.4 72 18 105/68 96 09/30/16 19:00 74 09/30/16 18:00 72 09/30/16 17:00 72 09/30/16 16:00 80 09/30/16 15:00 97.7 73 20 97/58 98 09/30/16 15:00 71 09/30/16 14:00 79 09/30/16 13:00 72 I/O 09/30/16 09/30/16 09/30/16 10/01/16 10/01/16 10/01/16 07:00 15:00 23:00 07:00 15:00 23:00 Intake Total 480 ml 480 ml 480 ml Output Total 1000 ml 900 ml 300 ml Balance -520 ml -420 ml 180 ml Intake Oral 480 ml 480 ml 480 ml Output Urine Total 1000 ml 900 ml 300 ml # Bowel Movements 0 Physical Exam Lungs clear +2 pedal edema. abd distended Laboratory Laboratory Tests Test 10/01/16 04:44 White Blood Count 6.1 TH/MM3 Red Blood Count 3.98 MIL/MM3 Hemoglobin 11.0 GM/DL Hematocrit 34.2 % Mean Corpuscular Volume 86.0 FL Mean Corpuscular Hemoglobin 27.7 PG Mean Corpuscular Hemoglobin 32.3 % Concent Red Cell Distribution Width 23.8 % Platelet Count 165 TH/MM3 Mean Platelet Volume 9.5 FL Neutrophils (%) (Auto) 60.0 % Lymphocytes (%) (Auto) 26.5 % Monocytes (%) (Auto) 11.3 % Eosinophils (%) (Auto) 0.3 % Basophils (%) (Auto) 1.9 % Neutrophils # (Auto) 3.7 TH/MM3 Lymphocytes # (Auto) 1.6 TH/MM3 Monocytes # (Auto) 0.7 TH/MM3 Eosinophils # (Auto) 0.0 TH/MM3 Basophils # (Auto) 0.1 TH/MM3 CBC Comment DIFF FINAL Differential Comment Sodium Level 136 MEQ/L Potassium Level 3.8 MEQ/L Chloride Level 99 MEQ/L Carbon Dioxide Level 26.9 MEQ/L Anion Gap 10 MEQ/L Blood Urea Nitrogen 24 MG/DL Creatinine 1.33 MG/DL Estimat Glomerular Filtration 40 ML/MIN Rate Random Glucose 123 MG/DL Calcium Level 8.4 MG/DL Magnesium Level 2.1 MG/DL B-Type Natriuretic Peptide 2940 PG/ML Assessment and Plan Assessment and Plan will increase lasix to 40 mg bid. Consider right eart cath once lungs are clear to r/o constrictive cardiomyopathy Edgar Nieves MD, FACC Oct 01, 2016 12:59
--- NOTE | 2016-10-01 18:46 | RADRPT ---
EXAM DATE/TIME: 10/01/2016 16:02 [facility] COMPARISON: No previous studies available for comparison. INDICATIONS : Sudden onset of RLE weakness today; evaluate for CVA. RADIATION DOSE: 41.01 CTDIvol (mGy) MEDICAL HISTORY : Carcinoma, breast. Cardiovascular disease SURGICAL HISTORY : None. ENCOUNTER: Initial ACUITY: 1 day PAIN SCALE: 0/10 LOCATION: cranial TECHNIQUE: Multiple contiguous axial images were obtained of the head. Using automated exposure control and adj ustment of the mA and/or kV according to patient size, radiation dose was kept as low as reasonably a chievable to obtain optimal diagnostic quality images. FINDINGS: CEREBRUM: The ventricles are normal for age. No evidence of midline shift, mass lesion, hemorrhage or acute in farction. No extra-axial fluid collections are seen. POSTERIOR FOSSA: The cerebellum and brainstem are intact. The 4th ventricle is midline. The cerebellopontine angle i s unremarkable. EXTRACRANIAL: The visualized portion of the orbits is intact. SKULL: The calvaria is intact. No evidence of skull fracture. CONCLUSION: No acute disease. Roberto Carlos Mcdonald MD on October 01, 2016 at 18:43 Board Certified Radiologist. This report was verified electronically.
[2016-10-01] MEDS: SPIRONOLACTONE 25 MG TAB PO SCH (21:40)
[2016-10-01] MEDS: ATORVASTATIN 20 MG TAB PO SCH (21:40)
[2016-10-02] VITALS (29 sets, daily range): BP systolic 99–110; BP diastolic 67–77; PULSE 69–88; RESP 16–20; TEMP 97.4–97.5; O2SAT 97–100
[2016-10-02] MEDS: INSULIN ASPART SUPPLEMENTAL SCALE SQ SCH ×3 (07:00→16:00)
[2016-10-02 07:31] LABS: BICARBONATE 29.4 MEQ/L (21.0-32.0); MAGNESIUM 2.1 MG/DL (1.5-2.5); POTASSIUM 3.8 MEQ/L (3.5-5.1)
[2016-10-02] MEDS: DIGOXIN 0.125 MG TAB PO SCH (08:57)
[2016-10-02] MEDS: AMIODARONE 200 MG TAB PO SCH (08:58)
[2016-10-02] MEDS: APIXABAN 2.5 MG TABLET PO SCH ×2 (08:58→21:06)
[2016-10-02] MEDS: CARVEDILOL 6.25 MG TAB PO SCH ×2 (08:59→21:00)
[2016-10-02] MEDS: POTASSIUM CHLORIDE 20 MEQ CONTROLLED RELEASE TAB PO SCH ×2 (08:59→21:05)
[2016-10-02] MEDS: LEVOTHYROXINE SODIUM 112 MCG TAB PO SCH (08:59)
[2016-10-02] MEDS: FUROSEMIDE 20 MG/2 ML VIAL IV PUSH SCH ×2 (09:00→17:47)
[2016-10-02] MEDS: SODIUM CHLORIDE 0.9% FLUSH 5 ML FLUSH IVF PRN (09:01)
--- NOTE | 2016-10-02 12:54 | HHI.PR ---
Subjective Remarks No new complaints. Objective Vitals Vital Signs Date Time Temp Pulse Resp B/P Pulse Ox O2 Delivery O2 Flow Rate FiO2 10/02/16 12:25 72 10/02/16 12:25 97.4 72 16 110/68 97 10/02/16 12:21 72 10/02/16 11:24 97.4 72 16 110/68 97 10/02/16 11:09 73 10/02/16 10:39 73 10/02/16 10:18 75 10/02/16 09:51 75 10/02/16 09:25 72 10/02/16 08:22 73 10/02/16 07:30 100 Room Air 2.00 10/02/16 07:11 97.4 75 16 102/77 100 10/02/16 07:11 75 10/02/16 06:00 76 10/02/16 05:00 72 10/02/16 04:00 69 10/02/16 04:00 97.5 70 18 108/70 97 10/02/16 03:00 72 10/02/16 02:00 72 10/02/16 01:00 74 10/02/16 00:00 97.5 72 20 106/70 99 10/02/16 00:00 77 10/01/16 23:00 72 10/01/16 22:00 73 10/01/16 21:00 70 10/01/16 20:00 71 10/01/16 20:00 97.3 74 20 93/57 99 10/01/16 20:00 Nasal Cannula 2.00 10/01/16 18:26 74 10/01/16 17:00 78 10/01/16 16:00 97.5 72 16 113/72 99 10/01/16 14:00 72 10/01/16 13:00 70 10/01/16 12:55 73 10/01/16 12:55 97.7 73 16 106/69 97 10/01/16 10/01/16 10/02/16 15:00 23:00 07:00 Intake Total 360 ml 480 ml Output Total 100 ml 300 ml 1000 ml Balance -100 ml 60 ml -520 ml Intake Oral 360 ml 480 ml Output Urine Total 100 ml 300 ml 1000 ml # Voids 1 1 # Bowel Movements 0 Result Diagram: 10/01/16 0444 10/02/16 0520 Imaging Last Impressions Chest X-Ray 09/29/16 0934 Signed Impressions: Service Date/Time: Thursday, September 29, 2016 09:56 - CONCLUSION: 1. Mild right lower lung infiltrate. 2. Interstitial changes bilaterally suggestive of chronic interstitial disease. However, some mild pulmonary edema can also have this appearance. There are no prior studies for comparison. Audi Crooks MD Objective Remarks GENERAL: This is a well-nourished, well-developed patient, in no apparent distress. CARDIOVASCULAR: Regular rate and rhythm without murmurs, gallops, or rubs. RESPIRATORY: Clear to auscultation. Breath sounds equal bilaterally. No wheezes , rales, or rhonchi. GASTROINTESTINAL: Abdomen soft, non-tender, nondistended. Normal active bowel sounds MUSCULOSKELETAL: b/l LE edema NEURO: Alert & Oriented x4 to person, place, time, situation. Moves all ext x4 A/P Problem List: (1) CHF exacerbation Status: Acute Plan: - comgmt with Cardiology - Pt initially presented with chf exacerbation with edema/haley/orthopnea - Pt with hx breast ca/chemo 2002 and developed dilated nonischemic cardiomyopathy and valvular heart dz. she has biv aicd and afib hx. - Pt reports being evaluated at [facility] for heart tx. - BNP: (09/29/16) 3211, (10/01/16) 2940, (10/02/16) 2827 - CXR (10/01/16) --> NO overt CHF - continue IV lasix at increased dose of 40mg IV BID /KCL - cont bb. dig. amio..anticoaguation. - observe clinical response - repeat BMP, BNP in AM (2) Weakness of right lower extremity Status: Acute Plan: - new onset - CT brain (10/01/16) --> NO acute findings (3) DM (diabetes mellitus) Status: Chronic Plan: - most blood sugar readings below 150 - stop scheduled accuchecks (4) Afib Status: Chronic Plan: - amiodarone, digoxin, eliquis, coreg (5) Hypothyroid Status: Chronic (6) EULALIO (obstructive sleep apnea) Status: Chronic (7) History of breast cancer Status: Chronic Problem Qualifiers (1) DM (diabetes mellitus): Qualified Code: E11.8 - Type 2 diabetes mellitus with complication, without long-term current use of insulin (2) Hypothyroid: Qualified Code: E03.9 - Hypothyroidism, unspecified type Damion Livingston DO Oct 02, 2016 12:54
--- NOTE | 2016-10-02 15:48 | PD.CARD.PN ---
Subjective Subjective Remarks breathing little better edema and abd distension unchanged Objective Medications Active Medications Furosemide (Lasix Inj) 40 mg BID@ IV PUSH Last administered on 10/02/16t 09: 00; Admin Dose 40 MG; Start 10/01/16 at 18:00 Spironolactone (Aldactone) 25 mg DAILY PO; Start 10/02/16 at 15:45; Status UNV Vital Signs / I&O Vital Signs Date Time Temp Pulse Resp B/P Pulse Ox O2 Delivery O2 Flow Rate FiO2 10/02/16 14:24 72 10/02/16 13:07 73 10/02/16 12:25 72 10/02/16 12:25 97.4 72 16 110/68 97 10/02/16 12:21 72 10/02/16 11:24 97.4 72 16 110/68 97 10/02/16 11:09 73 10/02/16 10:39 73 10/02/16 10:18 75 10/02/16 09:51 75 10/02/16 09:25 72 10/02/16 08:22 73 10/02/16 07:30 100 Room Air 2.00 10/02/16 07:11 97.4 75 16 102/77 100 10/02/16 07:11 75 10/02/16 06:00 76 10/02/16 05:00 72 10/02/16 04:00 69 10/02/16 04:00 97.5 70 18 108/70 97 10/02/16 03:00 72 10/02/16 02:00 72 10/02/16 01:00 74 10/02/16 00:00 97.5 72 20 106/70 99 10/02/16 00:00 77 10/01/16 23:00 72 10/01/16 22:00 73 10/01/16 21:00 70 10/01/16 20:00 71 10/01/16 20:00 97.3 74 20 93/57 99 10/01/16 20:00 Nasal Cannula 2.00 10/01/16 18:26 74 10/01/16 17:00 78 10/01/16 16:00 97.5 72 16 113/72 99 I/O 10/01/16 10/01/16 10/01/16 10/02/16 10/02/16 10/02/16 07:00 15:00 23:00 07:00 15:00 23:00 Intake Total 480 ml 360 ml 480 ml Output Total 300 ml 100 ml 300 ml 1000 ml 550 ml Balance 180 ml -100 ml 60 ml -520 ml -550 ml Intake Oral 480 ml 360 ml 480 ml Output Urine Total 300 ml 100 ml 300 ml 1000 ml 550 ml # Voids 1 1 # Bowel Movements 0 Physical Exam NECK: JVD elevated CARDIOVASCULAR: Regular rate and rhythm . RESPIRATORY: bibasilar crackles. GASTROINTESTINAL: distended MUSCULOSKELETAL: + edema. Laboratory Laboratory Tests Test 10/02/16 05:20 Sodium Level 135 MEQ/L Potassium Level 3.8 MEQ/L Chloride Level 95 MEQ/L Carbon Dioxide Level 29.4 MEQ/L Anion Gap 11 MEQ/L Blood Urea Nitrogen 21 MG/DL Creatinine 1.31 MG/DL Estimat Glomerular Filtration 40 ML/MIN Rate Random Glucose 75 MG/DL Calcium Level 8.6 MG/DL Magnesium Level 2.1 MG/DL B-Type Natriuretic Peptide 2827 PG/ML Imaging Last Impressions Chest X-Ray 10/01/16 0800 Signed Impressions: Service Date/Time: Saturday, October 01, 2016 10:10 - CONCLUSION: 1. Pacemaker in good position. 2. Small bilateral pleural effusions. Bernardino Duran MD Head CT 10/01/16 0000 Signed Impressions: Service Date/Time: Saturday, October 01, 2016 16:02 - CONCLUSION: No acute disease. Roberto Carlos Mcdonald MD Assessment and Plan Assessment and Plan acute on chronic systolic and diastolic HF - monitor I/O's. add spironolactone. cont lasix. dr rocha to consider [facility] in future Dr rocha to see in am Bernardino Mo MD Oct 02, 2016 15:48
[2016-10-02] MEDS: SPIRONOLACTONE 25 MG TAB PO SCH ×2 (17:16→21:06)
[2016-10-02] MEDS: ATORVASTATIN 20 MG TAB PO SCH (21:06)
[2016-10-03] VITALS (25 sets, daily range): BP systolic 96–108; BP diastolic 63–71; PULSE 68–88; RESP 20; TEMP 97.4–98.2; O2SAT 94–100
[2016-10-03 07:26] LABS: BICARBONATE 30.7 MEQ/L (21.0-32.0); MAGNESIUM 2.1 MG/DL (1.5-2.5); POTASSIUM 3.8 MEQ/L (3.5-5.1)
--- NOTE | 2016-10-03 08:11 | PD.CARD.PN ---
Subjective Subjective Remarks Feels a little better. Continues to diurese Objective Vital Signs / I&O Vital Signs Date Time Temp Pulse Resp B/P Pulse Ox O2 Delivery O2 Flow Rate FiO2 10/03/16 06:00 75 10/03/16 05:00 72 10/03/16 04:00 97.4 69 20 96/65 99 10/03/16 04:00 73 10/03/16 03:00 73 10/03/16 02:00 72 10/03/16 01:00 75 10/03/16 00:00 97.5 74 20 102/63 100 10/03/16 00:00 88 10/02/16 23:00 72 10/02/16 22:00 75 10/02/16 21:00 69 10/02/16 20:01 88 10/02/16 20:00 100 Nasal Cannula 2.00 10/02/16 20:00 97.4 69 18 99/67 100 10/02/16 19:00 88 10/02/16 18:23 75 10/02/16 17:10 72 10/02/16 16:00 72 10/02/16 15:30 97.4 76 18 102/72 97 10/02/16 15:30 75 10/02/16 14:24 72 10/02/16 13:07 73 10/02/16 12:25 72 10/02/16 12:25 97.4 72 16 110/68 97 10/02/16 12:21 72 10/02/16 11:24 97.4 72 16 110/68 97 10/02/16 11:09 73 10/02/16 10:39 73 10/02/16 10:18 75 10/02/16 09:51 75 10/02/16 09:25 72 10/02/16 08:22 73 I/O 10/02/16 10/02/16 10/02/16 10/03/16 10/03/16 10/03/16 07:00 15:00 23:00 07:00 15:00 23:00 Intake Total 480 ml 960 ml 200 ml Output Total 1000 ml 550 ml 1700 ml Balance -520 ml -550 ml 960 ml -1500 ml Intake Oral 480 ml 960 ml 200 ml Output Urine Total 1000 ml 550 ml 1700 ml # Voids 4 Physical Exam Lungs clear +2 pedal edema. abd distended Laboratory Laboratory Tests Test 10/03/16 05:35 Sodium Level 134 MEQ/L Potassium Level 3.8 MEQ/L Chloride Level 96 MEQ/L Carbon Dioxide Level 30.7 MEQ/L Anion Gap 7 MEQ/L Blood Urea Nitrogen 20 MG/DL Creatinine 1.27 MG/DL Estimat Glomerular Filtration 42 ML/MIN Rate Random Glucose 96 MG/DL Calcium Level 8.7 MG/DL Magnesium Level 2.1 MG/DL B-Type Natriuretic Peptide 2986 PG/ML Assessment and Plan Assessment and Plan Added spironolactone. Continue medical regimen. Edgar Nieves MD, FACC Oct 03, 2016 08:11
[2016-10-03] MEDS: DIGOXIN 0.125 MG TAB PO SCH (08:13)
[2016-10-03] MEDS: SPIRONOLACTONE 25 MG TAB PO SCH ×2 (08:13→21:42)
[2016-10-03] MEDS: APIXABAN 2.5 MG TABLET PO SCH ×2 (08:13→21:41)
[2016-10-03] MEDS: FUROSEMIDE 20 MG/2 ML VIAL IV PUSH SCH ×2 (08:13→18:00)
[2016-10-03] MEDS: LEVOTHYROXINE SODIUM 112 MCG TAB PO SCH (08:13)
[2016-10-03] MEDS: POTASSIUM CHLORIDE 20 MEQ CONTROLLED RELEASE TAB PO SCH ×2 (08:14→21:42)
[2016-10-03] MEDS: CARVEDILOL 6.25 MG TAB PO SCH ×2 (08:14→21:41)
[2016-10-03] MEDS: AMIODARONE 200 MG TAB PO SCH (08:14)
--- NOTE | 2016-10-03 10:44 | HHI.PR ---
Subjective Remarks No new complaints. Pt feels the LE edema is improving. Denies any chest pain Objective Vitals Vital Signs Date Time Temp Pulse Resp B/P Pulse Ox O2 Delivery O2 Flow Rate FiO2 10/03/16 06:00 75 10/03/16 05:00 72 10/03/16 04:00 97.4 69 20 96/65 99 10/03/16 04:00 73 10/03/16 03:00 73 10/03/16 02:00 72 10/03/16 01:00 75 10/03/16 00:00 97.5 74 20 102/63 100 10/03/16 00:00 88 10/02/16 23:00 72 10/02/16 22:00 75 10/02/16 21:00 69 10/02/16 20:01 88 10/02/16 20:00 100 Nasal Cannula 2.00 10/02/16 20:00 97.4 69 18 99/67 100 10/02/16 19:00 88 10/02/16 18:23 75 10/02/16 17:10 72 10/02/16 16:00 72 10/02/16 15:30 97.4 76 18 102/72 97 10/02/16 15:30 75 10/02/16 14:24 72 10/02/16 13:07 73 10/02/16 12:25 72 10/02/16 12:25 97.4 72 16 110/68 97 10/02/16 12:21 72 10/02/16 11:24 97.4 72 16 110/68 97 10/02/16 11:09 73 10/02/16 10/02/16 10/03/16 15:00 23:00 07:00 Intake Total 960 ml 200 ml Output Total 550 ml 1700 ml Balance -550 ml 960 ml -1500 ml Intake Oral 960 ml 200 ml Output Urine Total 550 ml 1700 ml # Voids 4 Result Diagram: 10/01/16 0444 10/03/16 0535 Other Results Laboratory Tests Test 10/02/16 10/03/16 05:20 05:35 Sodium Level 135 MEQ/L 134 MEQ/L Potassium Level 3.8 MEQ/L 3.8 MEQ/L Chloride Level 95 MEQ/L 96 MEQ/L Carbon Dioxide Level 29.4 MEQ/L 30.7 MEQ/L Anion Gap 11 MEQ/L 7 MEQ/L Blood Urea Nitrogen 21 MG/DL 20 MG/DL Creatinine 1.31 MG/DL 1.27 MG/DL Estimat Glomerular Filtration 40 ML/MIN 42 ML/MIN Rate Random Glucose 75 MG/DL 96 MG/DL Calcium Level 8.6 MG/DL 8.7 MG/DL Magnesium Level 2.1 MG/DL 2.1 MG/DL B-Type Natriuretic Peptide 2827 PG/ML 2986 PG/ML Imaging Last Impressions Chest X-Ray 09/29/16 0934 Signed Impressions: Service Date/Time: Thursday, September 29, 2016 09:56 - CONCLUSION: 1. Mild right lower lung infiltrate. 2. Interstitial changes bilaterally suggestive of chronic interstitial disease. However, some mild pulmonary edema can also have this appearance. There are no prior studies for comparison. Auid Crooks MD Objective Remarks General: NAD, AAOx3 Chest: CTA Cardiac: Regular Abd: +BS, soft ND/NT Ext: Bilateral LE edema, improving. A/P Problem List: (1) CHF exacerbation Status: Acute Plan: - comgmt with Cardiology - Pt initially presented with chf exacerbation with edema/haley/orthopnea - Pt with hx breast ca/chemo 2002 and developed dilated nonischemic cardiomyopathy and valvular heart dz. she has biv aicd and afib hx. - Pt reports being evaluated at [facility] for heart tx. - BNP: (09/29/16) 3211, (10/01/16) 2940, (10/02/16) 2827, (10/03/16) 2986 - CXR (10/01/16) --> NO overt CHF - continue IV Lasix at increased dose of 40mg IV BID /KCL and Aldactone 25mg po daily added on 10/03/16 - cont BB, Digoxin, Amio, Anticoagulation. - observe clinical response - repeat BMP, BNP in AM (2) Weakness of right lower extremity Status: Acute Plan: - new onset - CT brain (10/01/16) --> NO acute findings (3) DM (diabetes mellitus) Status: Chronic Plan: - most blood sugar readings below 150 - stop scheduled accuchecks (4) Afib Status: Chronic Plan: - amiodarone, digoxin, eliquis, coreg (5) Hypothyroid Status: Chronic (6) EULALIO (obstructive sleep apnea) Status: Chronic (7) History of breast cancer Status: Chronic Assessment and Plan Patient examined. Assessment and plan formulated with Savanah Antunez PA-C. I agree with the above. Problem Qualifiers (1) DM (diabetes mellitus): Qualified Code: E11.8 - Type 2 diabetes mellitus with complication, without long-term current use of insulin (2) Hypothyroid: Qualified Code: E03.9 - Hypothyroidism, unspecified type Savanah Antunez Oct 03, 2016 10:44 Damion Livingston DO Oct 09, 2016 17:32
[2016-10-03] MEDS: ATORVASTATIN 20 MG TAB PO SCH (21:42)
[2016-10-03] MEDS: SODIUM CHLORIDE 0.9% FLUSH 5 ML FLUSH IVF PRN (21:42)
[2016-10-04] VITALS (27 sets, daily range): BP systolic 96–107; BP diastolic 65–75; PULSE 68–78; RESP 20; TEMP 97.4–98.4; O2SAT 98–100
[2016-10-04 05:33] LABS: BICARBONATE 31.4 MEQ/L (21.0-32.0); POTASSIUM 3.7 MEQ/L (3.5-5.1)
--- NOTE | 2016-10-04 08:30 | PD.CARD.PN ---
Subjective Subjective Remarks Fatigued Objective Vital Signs / I&O Vital Signs Date Time Temp Pulse Resp B/P Pulse Ox O2 Delivery O2 Flow Rate FiO2 10/04/16 06:00 74 10/04/16 05:00 70 10/04/16 04:16 98.1 70 20 101/69 100 10/04/16 04:00 75 10/04/16 03:00 68 10/04/16 02:00 68 10/04/16 01:00 76 10/04/16 00:00 72 10/03/16 23:53 97.4 75 20 97/67 94 10/03/16 23:00 74 10/03/16 22:00 74 10/03/16 21:00 68 10/03/16 20:29 97.4 73 20 108/71 100 10/03/16 20:29 100 Nasal Cannula 2.00 10/03/16 20:00 72 10/03/16 19:00 73 10/03/16 15:00 97.4 73 20 98/66 100 10/03/16 14:00 74 10/03/16 13:00 72 10/03/16 12:00 70 10/03/16 11:30 98.2 70 20 97/70 99 10/03/16 11:00 69 10/03/16 10:00 73 10/03/16 09:00 72 I/O 10/03/16 10/03/16 10/03/16 10/04/16 10/04/16 10/04/16 07:00 15:00 23:00 07:00 15:00 23:00 Intake Total 200 ml 480 ml Output Total 1700 ml 1300 ml Balance -1500 ml -820 ml Intake Oral 200 ml 480 ml IV Total 0 ml Output Urine Total 1700 ml 1300 ml Emesis 0 ml # Bowel Movements 0 Physical Exam Lungs clear +1 pedal edema. abd distended Laboratory Laboratory Tests Test 10/04/16 04:52 Sodium Level 132 MEQ/L Potassium Level 3.7 MEQ/L Chloride Level 95 MEQ/L Carbon Dioxide Level 31.4 MEQ/L Anion Gap 6 MEQ/L Blood Urea Nitrogen 19 MG/DL Creatinine 1.22 MG/DL Estimat Glomerular Filtration 44 ML/MIN Rate Random Glucose 81 MG/DL Calcium Level 8.4 MG/DL B-Type Natriuretic Peptide 2108 PG/ML Assessment and Plan Assessment and Plan Added metolazone Continue medical regimen. Edgar Nieves MD, FACC Oct 04, 2016 08:30
[2016-10-04] MEDS: LEVOTHYROXINE SODIUM 112 MCG TAB PO SCH (09:00)
[2016-10-04] MEDS: AMIODARONE 200 MG TAB PO SCH (09:00)
[2016-10-04] MEDS: POTASSIUM CHLORIDE 20 MEQ CONTROLLED RELEASE TAB PO SCH ×2 (09:00→21:06)
[2016-10-04] MEDS: DIGOXIN 0.125 MG TAB PO SCH (09:00)
[2016-10-04] MEDS: SPIRONOLACTONE 25 MG TAB PO SCH (09:00)
[2016-10-04] MEDS: APIXABAN 2.5 MG TABLET PO SCH ×2 (09:00→21:06)
[2016-10-04] MEDS: CARVEDILOL 6.25 MG TAB PO SCH ×2 (09:00→21:06)
[2016-10-04] MEDS: METOLAZONE 2.5 MG TAB PO SCH (09:55)
[2016-10-04] MEDS: FUROSEMIDE 20 MG/2 ML VIAL IV PUSH SCH ×2 (09:55→17:25)
[2016-10-04 10:18] LABS: BICARBONATE 31.1 MEQ/L (21.0-32.0); POTASSIUM 3.8 MEQ/L (3.5-5.1)
--- NOTE | 2016-10-04 13:56 | HHI.PR ---
Subjective Remarks Pt is very lethargic after having received Xanax about 1 hour ago Pts reports that the pt was very distraught this morning after she spoke with Dr. Nieves because he states that the pt reported she will likely need to be back on the transplant list. Objective Vitals Vital Signs Date Time Temp Pulse Resp B/P Pulse Ox O2 Delivery O2 Flow Rate FiO2 10/04/16 06:00 74 10/04/16 05:00 70 10/04/16 04:16 98.1 70 20 101/69 100 10/04/16 04:00 75 10/04/16 03:00 68 10/04/16 02:00 68 10/04/16 01:00 76 10/04/16 00:00 72 10/03/16 23:53 97.4 75 20 97/67 94 10/03/16 23:00 74 10/03/16 22:00 74 10/03/16 21:00 68 10/03/16 20:29 97.4 73 20 108/71 100 10/03/16 20:29 100 Nasal Cannula 2.00 10/03/16 20:00 72 10/03/16 19:00 73 10/03/16 15:00 97.4 73 20 98/66 100 10/03/16 14:00 74 10/03/16 10/03/16 10/04/16 15:00 23:00 07:00 Intake Total 480 ml Output Total 1300 ml Balance -820 ml Intake Oral 480 ml IV Total 0 ml Output Urine Total 1300 ml Emesis 0 ml # Bowel Movements 0 Result Diagram: 10/01/16 0444 10/04/16 0930 Other Results Laboratory Tests Test 10/03/16 10/04/16 10/04/16 05:35 04:52 09:30 Sodium Level 134 MEQ/L 132 MEQ/L 133 MEQ/L Potassium Level 3.8 MEQ/L 3.7 MEQ/L 3.8 MEQ/L Chloride Level 96 MEQ/L 95 MEQ/L 94 MEQ/L Carbon Dioxide Level 30.7 MEQ/L 31.4 MEQ/L 31.1 MEQ/L Anion Gap 7 MEQ/L 6 MEQ/L 8 MEQ/L Blood Urea Nitrogen 20 MG/DL 19 MG/DL 20 MG/DL Creatinine 1.27 MG/DL 1.22 MG/DL 1.33 MG/DL Estimat Glomerular Filtration 42 ML/MIN 44 ML/MIN 40 ML/MIN Rate Random Glucose 96 MG/DL 81 MG/DL 102 MG/DL Calcium Level 8.7 MG/DL 8.4 MG/DL 8.3 MG/DL Magnesium Level 2.1 MG/DL B-Type Natriuretic Peptide 2986 PG/ML 2108 PG/ML Imaging Last Impressions Chest X-Ray 09/29/16 0934 Signed Impressions: Service Date/Time: Thursday, September 29, 2016 09:56 - CONCLUSION: 1. Mild right lower lung infiltrate. 2. Interstitial changes bilaterally suggestive of chronic interstitial disease. However, some mild pulmonary edema can also have this appearance. There are no prior studies for comparison. Audi Crooks MD Objective Remarks General: NAD, lethargic Chest: CTA Cardiac: Regular Abd: +BS, soft ND/NT Ext: Bilateral 1+ LE edema, improving. A/P Problem List: (1) CHF exacerbation Status: Acute Plan: - comgmt with Cardiology - Pt initially presented with chf exacerbation with edema/haley/orthopnea - Pt with hx breast ca/chemo 2002 and developed dilated nonischemic cardiomyopathy and valvular heart dz. she has biv aicd and afib hx. - Pt reports being evaluated at [facility] for heart tx. - BNP: 3211 (09/29/16) --> 2940 (10/01/16) --> 2827 (10/02/16) --> 2986 (10/03/16) -- > 2108 (10/04/16) - CXR (10/01/16) --> NO overt CHF - Pt is on IV Lasix 40mg IV BID /KCL, Aldactone 25mg po daily added on 10/02/16, and Metolazone 2.5mg po daily was added on 10/04/16 - Monitor BMP closely as renal function increased today to Cr 1.33 - cont BB, Digoxin, Amio, Anticoagulation. - observe clinical response - repeat BMP, BNP in AM (2) Weakness of right lower extremity Status: Acute Plan: - new onset - CT brain (10/01/16) --> NO acute findings (3) DM (diabetes mellitus) Status: Chronic Plan: - most blood sugar readings below 150 - stop scheduled accuchecks (4) Afib Status: Chronic Plan: - amiodarone, digoxin, eliquis, coreg (5) Hypothyroid Status: Chronic (6) EULALIO (obstructive sleep apnea) Status: Chronic (7) History of breast cancer Status: Chronic Assessment and Plan Patient examined. Assessment and plan formulated with Savanah Antunez PA-C. I agree with the above. Problem Qualifiers (1) DM (diabetes mellitus): Qualified Code: E11.8 - Type 2 diabetes mellitus with complication, without long-term current use of insulin (2) Hypothyroid: Qualified Code: E03.9 - Hypothyroidism, unspecified type Savanah Antunez Oct 04, 2016 13:56 Damion Livingston DO Oct 09, 2016 17:32
[2016-10-04] MEDS ORDERED: ALPRAZolam 0.25 MG TAB PO PRN (14:30)
[2016-10-04] MEDS: ATORVASTATIN 20 MG TAB PO SCH (21:06)
[2016-10-05] VITALS (23 sets, daily range): BP systolic 92–105; BP diastolic 59–67; PULSE 68–84; RESP 18–20; TEMP 97.4–98.3; O2SAT 93–98
[2016-10-05] MEDS: LEVOTHYROXINE SODIUM 112 MCG TAB PO SCH (05:32)
[2016-10-05 07:52] LABS: BICARBONATE 33.3 MEQ/L (21.0-32.0); POTASSIUM 3.4 MEQ/L (3.5-5.1)
[2016-10-05] MEDS: AMIODARONE 200 MG TAB PO SCH (09:47)
[2016-10-05] MEDS: APIXABAN 2.5 MG TABLET PO SCH ×2 (09:47→20:05)
[2016-10-05] MEDS: POTASSIUM CHLORIDE 20 MEQ CONTROLLED RELEASE TAB PO SCH ×2 (09:47→20:05)
[2016-10-05] MEDS: SPIRONOLACTONE 25 MG TAB PO SCH (09:48)
[2016-10-05] MEDS: CARVEDILOL 6.25 MG TAB PO SCH ×2 (09:49→20:05)
[2016-10-05] MEDS: DIGOXIN 0.125 MG TAB PO SCH (09:49)
[2016-10-05] MEDS: METOLAZONE 2.5 MG TAB PO SCH (09:49)
[2016-10-05] MEDS: FUROSEMIDE 20 MG/2 ML VIAL IV PUSH SCH ×2 (09:49→17:08)
--- NOTE | 2016-10-05 13:16 | HHI.PR ---
Subjective Remarks No new complaints. Objective Vitals Vital Signs Date Time Temp Pulse Resp B/P Pulse Ox O2 Delivery O2 Flow Rate FiO2 10/05/16 06:00 69 10/05/16 05:46 Room Air 10/05/16 04:00 98.0 73 20 105/66 98 10/05/16 04:00 73 10/05/16 04:00 Nasal Cannula 1.00 10/05/16 03:00 70 10/05/16 02:00 68 10/05/16 01:00 72 10/05/16 00:00 Nasal Cannula 2.00 10/05/16 00:00 98.3 69 20 101/67 97 10/05/16 00:00 69 10/04/16 23:00 72 10/04/16 22:00 72 10/04/16 21:00 74 10/04/16 20:00 73 10/04/16 20:00 98.4 75 20 96/65 98 10/04/16 20:00 Nasal Cannula 2.00 10/04/16 18:00 74 10/04/16 17:00 74 10/04/16 16:00 72 10/04/16 15:10 98.0 73 20 101/69 100 10/04/16 15:00 72 10/04/16 14:00 72 10/04/16 10/04/16 10/05/16 15:00 23:00 07:00 Intake Total 482 ml Output Total 950 ml Balance -468 ml Intake Oral 480 ml IV Total 2 ml Output Urine Total 950 ml Emesis 0 ml # Bowel Movements 1 Result Diagram: 10/01/16 0444 10/05/16 0655 Imaging Last Impressions Chest X-Ray 09/29/16 0934 Signed Impressions: Service Date/Time: Thursday, September 29, 2016 09:56 - CONCLUSION: 1. Mild right lower lung infiltrate. 2. Interstitial changes bilaterally suggestive of chronic interstitial disease. However, some mild pulmonary edema can also have this appearance. There are no prior studies for comparison. Audi Crooks MD Objective Remarks General: NAD Chest: CTA Cardiac: Regular Abd: +BS, soft ND/NT Ext: Bilateral 1+ LE edema, improving. A/P Problem List: (1) CHF exacerbation Status: Acute Plan: - comgmt with Cardiology - Pt initially presented with chf exacerbation with edema/haley/orthopnea - Pt with hx breast ca/chemo 2002 and developed dilated nonischemic cardiomyopathy and valvular heart dz. she has biv aicd and afib hx. - Pt reports being evaluated at [facility] for heart tx. - EF (05/16/16) - EF 20-25% - moderate pulmonary HTN - BNP: 3211 (09/29/16) --> 2940 (10/01/16) --> 2827 (10/02/16) --> 2986 (10/03/16) -- > 2108 (10/04/16) --> 2120 (10/05/16) - CXR (10/01/16) --> NO overt CHF - Pt is on IV Lasix 40mg IV BID /KCL, Aldactone 25mg po daily added on 10/02/16, and Metolazone 2.5mg po daily was added on 10/04/16 - repeat BMP in AM - cont BB, Digoxin, Amio, Anticoagulation. - observe clinical response (2) Weakness of right lower extremity Status: Acute Plan: - new onset - CT brain (10/01/16) --> NO acute findings (3) DM (diabetes mellitus) Status: Chronic Plan: - most blood sugar readings below 150 - stop scheduled accuchecks (4) Afib Status: Chronic Plan: - amiodarone, digoxin, eliquis, coreg (5) Hypothyroid Status: Chronic (6) EULALIO (obstructive sleep apnea) Status: Chronic (7) History of breast cancer Status: Chronic Problem Qualifiers (1) DM (diabetes mellitus): Qualified Code: E11.8 - Type 2 diabetes mellitus with complication, without long-term current use of insulin (2) Hypothyroid: Qualified Code: E03.9 - Hypothyroidism, unspecified type Damion Livingston DO Oct 05, 2016 13:16
[2016-10-05] MEDS: ATORVASTATIN 20 MG TAB PO SCH (20:05)
[2016-10-06] VITALS (24 sets, daily range): BP systolic 92–104; BP diastolic 59–69; PULSE 70–78; RESP 18–20; TEMP 97.7–98.6; O2SAT 94–99
[2016-10-06] MEDS: LEVOTHYROXINE SODIUM 112 MCG TAB PO SCH (05:43)
[2016-10-06 05:45] LABS: BICARBONATE 35.8 MEQ/L (21.0-32.0); MAGNESIUM 1.9 MG/DL (1.5-2.5); POTASSIUM 3.2 MEQ/L (3.5-5.1)
[2016-10-06] MEDS: FUROSEMIDE 20 MG/2 ML VIAL IV PUSH SCH ×2 (09:41→18:29)
[2016-10-06] MEDS: POTASSIUM CHLORIDE 20 MEQ CONTROLLED RELEASE TAB PO SCH ×2 (09:42→20:40)
[2016-10-06] MEDS: APIXABAN 2.5 MG TABLET PO SCH ×2 (09:42→20:43)
[2016-10-06] MEDS: METOLAZONE 2.5 MG TAB PO SCH (09:42)
[2016-10-06] MEDS: CARVEDILOL 6.25 MG TAB PO SCH ×2 (09:42→20:40)
[2016-10-06] MEDS: SPIRONOLACTONE 25 MG TAB PO SCH (09:42)
[2016-10-06] MEDS: DIGOXIN 0.125 MG TAB PO SCH (09:42)
[2016-10-06] MEDS: AMIODARONE 200 MG TAB PO SCH (09:42)
--- NOTE | 2016-10-06 16:51 | HHI.PR ---
Subjective Remarks No new complaints. Objective Vitals Vital Signs Date Time Temp Pulse Resp B/P Pulse Ox O2 Delivery O2 Flow Rate FiO2 10/06/16 13:00 70 10/06/16 12:00 76 10/06/16 11:00 98.0 76 18 99/59 96 10/06/16 11:00 76 10/06/16 10:00 72 10/06/16 09:00 78 10/06/16 08:00 74 10/06/16 07:15 Room Air 10/06/16 07:00 72 10/06/16 07:00 97.9 72 20 104/63 94 10/06/16 06:00 74 10/06/16 05:00 76 10/06/16 04:00 98.6 75 18 92/62 99 10/06/16 04:00 75 10/06/16 04:00 Room Air 10/06/16 03:00 76 10/06/16 02:00 74 10/06/16 01:00 75 10/06/16 00:00 73 10/06/16 00:00 98.0 73 20 102/69 97 10/06/16 00:00 Room Air 10/05/16 23:00 72 10/05/16 22:00 70 10/05/16 21:00 73 10/05/16 20:00 Room Air 10/05/16 20:00 97.9 75 20 96/62 97 10/05/16 20:00 75 10/05/16 18:00 78 10/05/16 17:00 72 10/05/16 10/05/16 10/06/16 15:00 23:00 07:00 Intake Total 360 ml 482 ml Output Total 1320 ml 1100 ml Balance -960 ml -618 ml Intake Oral 360 ml 480 ml IV Total 2 ml Output Urine Total 1320 ml 1100 ml # Bowel Movements 0 Result Diagram: 10/06/16 0510 Imaging Last Impressions Chest X-Ray 09/29/16 0934 Signed Impressions: Service Date/Time: Thursday, September 29, 2016 09:56 - CONCLUSION: 1. Mild right lower lung infiltrate. 2. Interstitial changes bilaterally suggestive of chronic interstitial disease. However, some mild pulmonary edema can also have this appearance. There are no prior studies for comparison. Audi Crooks MD Objective Remarks General: NAD Chest: CTA Cardiac: Regular Abd: +BS, soft ND/NT Ext: Bilateral 1+ LE edema, improving. A/P Problem List: (1) CHF exacerbation Status: Acute Plan: - comgmt with Cardiology - Pt initially presented with chf exacerbation with edema/haley/orthopnea - Pt with hx breast ca/chemo 2002 and developed dilated nonischemic cardiomyopathy and valvular heart dz. she has biv aicd and afib hx. - Pt reports being evaluated at [facility] for heart tx. - EF (05/16/16) - EF 20-25% - moderate pulmonary HTN - BNP: 3211 (09/29/16) --> 2940 (10/01/16) --> 2827 (10/02/16) --> 2986 (10/03/16) -- > 2108 (10/04/16) --> 2120 (10/05/16) - CXR (10/01/16) --> NO overt CHF - Pt is on IV Lasix 40mg IV BID /KCL, Aldactone 25mg po daily added on 10/02/16, and Metolazone 2.5mg po daily was added on 10/04/16 - repeat BMP in AM - cont BB, Digoxin, Amio, Anticoagulation. - observe clinical response 10/06/16 - pt interviewed and examined - continue current treatment plan - d/w Cardiology in AM. Hopefully convert any IV diuretics back to PO (2) Weakness of right lower extremity Status: Acute Plan: - new onset - CT brain (10/01/16) --> NO acute findings (3) DM (diabetes mellitus) Status: Chronic Plan: - most blood sugar readings below 150 - stop scheduled accuchecks (4) Afib Status: Chronic Plan: - amiodarone, digoxin, eliquis, coreg (5) Hypothyroid Status: Chronic (6) EULALIO (obstructive sleep apnea) Status: Chronic (7) History of breast cancer Status: Chronic Assessment and Plan Patient examined. Assessment and plan formulated with Savanah OTOOLE I agree with the above. Problem Qualifiers (1) DM (diabetes mellitus): Qualified Code: E11.8 - Type 2 diabetes mellitus with complication, without long-term current use of insulin (2) Hypothyroid: Qualified Code: E03.9 - Hypothyroidism, unspecified type Damion Livingston DO Oct 06, 2016 16:51
[2016-10-06] MEDS: ATORVASTATIN 20 MG TAB PO SCH (20:46)
[2016-10-07] VITALS (11 sets, daily range): BP systolic 92–106; BP diastolic 60–66; PULSE 70–75; RESP 18–20; TEMP 97.3–98.1; O2SAT 95
[2016-10-07] MEDS: LEVOTHYROXINE SODIUM 112 MCG TAB PO SCH (05:48)
[2016-10-07] MEDS ORDERED: POTASSIUM CHLORIDE 20 MEQ CONTROLLED RELEASE TAB PO ONE ×2 (08:00→12:00)
[2016-10-07 08:56] LABS: BICARBONATE 36.9 MEQ/L (21.0-32.0); POTASSIUM 3.1 MEQ/L (3.5-5.1)
[2016-10-07] MEDS ORDERED: FUROSEMIDE 40 MG TAB PO SCH (09:00)
--- NOTE | 2016-10-07 09:03 | HHI.PR ---
Subjective Remarks doing well. mouth a little dry. wants to go home. Objective Vitals heart reg lung cta abd s/nt ext no edema Vital Signs Date Time Temp Pulse Resp B/P Pulse Ox O2 Delivery O2 Flow Rate FiO2 10/07/16 06:00 72 10/07/16 05:00 75 10/07/16 04:00 73 10/07/16 04:00 97.9 73 18 92/60 95 10/07/16 04:00 Room Air 10/07/16 03:00 74 10/07/16 02:00 70 10/07/16 01:00 72 10/07/16 00:00 74 10/06/16 23:57 Room Air 10/06/16 23:57 97.8 74 18 97/67 96 10/06/16 23:00 72 10/06/16 22:00 76 10/06/16 21:00 75 10/06/16 20:00 75 10/06/16 20:00 Room Air 10/06/16 20:00 97.9 74 20 95/65 97 10/06/16 18:00 75 10/06/16 17:00 76 10/06/16 16:00 75 10/06/16 15:00 97.7 73 20 100/60 98 10/06/16 15:00 73 10/06/16 14:00 72 10/06/16 13:00 70 10/06/16 12:00 76 10/06/16 11:00 98.0 76 18 99/59 96 10/06/16 11:00 76 10/06/16 10:00 72 10/06/16 10/06/16 10/07/16 15:00 23:00 07:00 Intake Total 720 ml 482 ml Output Total 1000 ml 1600 ml Balance -280 ml -1118 ml Intake Oral 720 ml 480 ml IV Total 2 ml Output Urine Total 1000 ml 1600 ml Emesis 0 ml # Bowel Movements 1 0 Result Diagram: 10/07/16 0744 Imaging Last Impressions Chest X-Ray 09/29/16 0934 Signed Impressions: Service Date/Time: Thursday, September 29, 2016 09:56 - CONCLUSION: 1. Mild right lower lung infiltrate. 2. Interstitial changes bilaterally suggestive of chronic interstitial disease. However, some mild pulmonary edema can also have this appearance. There are no prior studies for comparison. Audi Crooks MD A/P Problem List: (1) CHF exacerbation Status: Acute Plan: - comgmt with Cardiology - Pt initially presented with chf exacerbation with edema/haley/orthopnea - Pt with hx breast ca/chemo 2002 and developed dilated nonischemic cardiomyopathy and valvular heart dz. she has biv aicd and afib hx. - Pt reports being evaluated at [facility] for heart tx. - EF (05/16/16) - EF 20-25% - moderate pulmonary HTN - BNP: 3211 (09/29/16) --> 2940 (10/01/16) --> 2827 (10/02/16) --> 2986 (10/03/16) -- > 2108 (10/04/16) --> 2120 (10/05/16) - CXR (10/01/16) --> NO overt CHF - Pt is on IV Lasix 40mg IV BID /KCL, Aldactone 25mg po daily added on 10/02/16, and Metolazone 2.5mg po daily was added on 10/04/16 - cont BB, Digoxin, Amio, Anticoagulation. today will convert back to po lasix and cont metolazone and aldactone per my discussion with cardiology. ok to d/c and close f/u. replace kcl and recheck prior to d/c later today. (2) Weakness of right lower extremity Status: Acute Plan: - new onset - CT brain (10/01/16) --> NO acute findings (3) DM (diabetes mellitus) Status: Chronic Plan: - most blood sugar readings below 150 - stop scheduled accuchecks (4) Afib Status: Chronic Plan: - amiodarone, digoxin, eliquis, coreg (5) Hypothyroid Status: Chronic (6) EULALIO (obstructive sleep apnea) Status: Chronic (7) History of breast cancer Status: Chronic Problem Qualifiers (1) DM (diabetes mellitus): Qualified Code: E11.8 - Type 2 diabetes mellitus with complication, without long-term current use of insulin (2) Hypothyroid: Qualified Code: E03.9 - Hypothyroidism, unspecified type Bret Rabago MD Oct 07, 2016 09:03
[2016-10-07] MEDS ORDERED: K-TA10TA PO (09:11)
[2016-10-07] MEDS ORDERED: METO2.5T PO (09:11)
--- NOTE | 2016-10-07 09:12 | HHI.DCPOC ---
Discharge Care Plan Diagnosis: (1) CHF exacerbation (2) Hypokalemia (3) DM (diabetes mellitus) (4) Hypothyroid (5) EULALIO (obstructive sleep apnea) (6) Afib (7) History of breast cancer (8) GERALDINE (acute kidney injury) Goals to Promote Your Health * To prevent worsening of your condition and complications * To maintain your health at the optimal level Directions to Meet Your Goals Take your medications as prescribed Follow your dietary instruction Follow activity as directed Keep your appointments as scheduled Take your immunizations and boosters as scheduled If your symptoms worsen call your PCP, if no PCP go to Urgent Care Center or Emergency Room Smoking is Dangerous to Your Health. Avoid second hand smoke Call the 24-hour hour crisis hotline for domestic abuse at Bret Rabago MD Oct 07, 2016 09:11
[2016-10-07] MEDS: METOLAZONE 2.5 MG TAB PO SCH (09:43)
[2016-10-07] MEDS: APIXABAN 2.5 MG TABLET PO SCH (09:43)
[2016-10-07] MEDS: SPIRONOLACTONE 25 MG TAB PO SCH (09:43)
[2016-10-07] MEDS: DIGOXIN 0.125 MG TAB PO SCH (09:43)
[2016-10-07] MEDS: AMIODARONE 200 MG TAB PO SCH (09:44)
[2016-10-07] MEDS: CARVEDILOL 6.25 MG TAB PO SCH (09:50)
[2016-10-07] MEDS ORDERED: WALKER WHEELS/F1 MIS (15:48)
--- NOTE | 2016-11-28 19:55 | HHI.DS ---
Discharge Summary Admission Date Sep 29, 2016 at 11:15 Discharge Date: Oct 07, 2016 Admitting Diagnosis CHF exacerbation/hypokalemia (1) CHF exacerbation Diagnosis: Principal (2) Weakness of right lower extremity Diagnosis: Principal (3) DM (diabetes mellitus) Diagnosis: Secondary (4) Afib Diagnosis: Secondary (5) Hypothyroid Diagnosis: Secondary (6) EULALIO (obstructive sleep apnea) Diagnosis: Secondary (7) History of breast cancer Diagnosis: Secondary Brief History Pt presents with 1 day complaint of worsening lower ext edema to thighs, sob lying flat and with exertion. She gives hx of dilated cardiomyopathy and aortic valve dz and being evaluated by [facility] for transplant. follows with dr Nieves. She has received iv lasix and kcl here in ED. no cp or palpitations. taking all of her meds at home. Hospital Course - Pt initially presented with chf exacerbation with edema/haley/orthopnea - Pt with hx breast ca/chemo 2002 and developed dilated nonischemic cardiomyopathy and valvular heart dz. she has biv aicd and afib hx. - Pt reports being evaluated at [facility] for heart tx. - EF (05/16/16) - EF 20-25% - moderate pulmonary HTN - CXR (10/01/16) --> NO overt CHF - Pt is on IV Lasix 40mg IV BID /KCL, Aldactone 25mg po daily added on 10/02/16, and Metolazone 2.5mg po daily was added on 10/04/16 - cont BB, Digoxin, Amio, Anticoagulation. today will convert back to po lasix and cont metolazone and aldactone per my discussion with cardiology. ok to d/c and close f/u. replace kcl and recheck prior to d/c later today. Pt Condition on Discharge: Stable Discharge Disposition: Discharge Home Discharge Instructions DIET: Follow Instructions for: Heart Healthy Diet Activities you can perform: Regular-No Restrictions Follow up Referrals: Cardiology - 3-[address] Nieves PCP Follow-up - [address] Katia Osborne New Medications: Walker with Front Wheels (Walker with Front Wheels) 1 Mis Mis 1 EA .ROUTE DIRECTED #1 Ref 0 EA Metolazone (Metolazone) 2.5 Mg Tab 2.5 MG PO DAILY chf #30 TAB Changed Medications: Potassium Chloride ER (K-Tab) 10 Meq Tab 20 MEQ PO BID Electrolyte Replacement #60 Ref 0 TAB (Changed from: 10 MEQ) Continued Medications: Alprazolam (Alprazolam) 0.5 Mg Tab 0.5 MG PO DIRECTED PRN PRE DENTAL WORK Ref 0 TAB Amiodarone (Amiodarone) 200 Mg Tab 200 MG PO DAILY Regulate Heart Beat #30 Ref 0 TAB Apixaban (Eliquis) 2.5 Mg Tab 2.5 MG PO BID Blood Clot Prevention Ref 0 TAB Carvedilol (Carvedilol) 6.25 Mg Tab 6.25 MG PO BID #60 Ref 0 TAB Cetirizine (Zyrtec Allergy) 10 Mg Tab 10 MG PO DAILY PRN ALLERGIES Ref 0 TAB Cholecalciferol (D3 2000) 2,000 Unit Tab 2000 UNITS PO DAILY Coenzyme Q10 (Ubidecarenone) (Co Q-10) 200 Mg Cap 200 MG PO HS Dextromethorphan-Guaifenesin ER 12 HR (Mucinex DM Maximum Strength) 60-1,200 Mg Tab 1 TAB PO DIRECTED PRN COUGH Ref 0 TAB Digoxin (Digoxin) 0.125 Mg Tab 0.125 MG PO DAILY Regulate Heart Beat #30 Ref 0 TAB Diphenhydramine (Sleep) (Zzzquil) 25 Mg Cap 25 MG PO HS PRN INSOMNIA Ref 0 CAP Diphenhydramine-Acetaminophen (Tylenol Pm Extra Strength) 25-500 Mg Tab 1 TAB PO HS PRN PAIN/INSOMNIA Furosemide (Lasix) 40 Mg Tab 40 MG PO BID #60 Ref 0 TAB Levothyroxine (Synthroid) 112 Mcg Tab 112 MCG PO DAILY Thyroid #30 Ref 0 TAB Metformin ER (Metformin ER) 500 Mg Jana 500 MG PO DAILY PC @1800 With evening meal Blood Sugar Management Ref 0 TAB Mometasone Nasal [place] (Nasonex Nasal [place]) 50 Mcg/Act Naspr 2 SPRAY EACH NARE DAILY PRN Allergy Management #1 Ref 0 BOTTLE Rosuvastatin (Crestor) 10 Mg Tab 10 MG PO HS Cholesterol Management #30 Ref 0 TAB Spironolactone (Spironolactone) 25 Mg Tab 25 MG PO HS #30 Ref 0 TAB Valacyclovir (Valtrex) 1 Gm Tab 1000 MG PO DAILY PRN SHINGLES OUTBREAK #30 Ref 0 TAB Bret aRbago MD Nov 28, 2016 19:55
== END 2016-10-07 16:15 | disposition home or self-care (01) | DRG 292 ==
LOC: NEPA 09:15 → NEDA 11:15 → HCIS 15:45
PROVIDERS: ADMIT Hospitalist; ATTEND Hospitalist
DX: I50.9 Heart failure, unspecified (principal); I38 Endocarditis, valve unspecified; N17.9 Acute kidney failure, unspecified; I42.0 Dilated cardiomyopathy; I27.2 Other secondary pulmonary hypertension; I48.91 Unspecified atrial fibrillation; Z85.3 Personal history of malignant neoplasm of breast; Z92.21 Personal history of antineoplastic chemotherapy; Z95.810 Presence of automatic (implantable) cardiac defibrillator; J45.909 Unspecified asthma, uncomplicated; I25.10 Atherosclerotic heart disease of native coronary artery without angina pectoris; Z82.49 Family history of ischemic heart disease and other diseases of the circulatory system; Z79.02 Long term (current) use of antithrombotics/antiplatelets; Z79.84 Long term (current) use of oral hypoglycemic drugs; E03.9 Hypothyroidism, unspecified; E78.00 Pure hypercholesterolemia, unspecified; E87.6 Hypokalemia; E11.9 Type 2 diabetes mellitus without complications; G47.33 Obstructive sleep apnea (adult) (pediatric); Z90.13 Acquired absence of bilateral breasts and nipples; R53.1 Weakness; R60.0 Localized edema; Z87.891 Personal history of nicotine dependence
CPT/HCPCS: 70450; 71010; 71020; 80048; 80053; 80162; 81001; 82550; 82948; 83735; 83880; 84132; 84484; 85025; 85610; 85730; 93005; 96374; 96375; J0171; J1940; J3480

== ENCOUNTER 2017-05-07 05:59 | Day surgery (SDC) | payer MEDICARE ==
[~2017-05-07] VITALS: Ht 175.3 cm; Wt 62.2 kg
[~2017-05-07 05:59] MED LIST changes: -ADVI200T16 PO; -ALDA25TA OR; -ALEN70TA39 OR; +ALPR0.5T3 PO; +AMIO200T PO; -AMOX500T PO; +APIX2.5T PO; -ASPI81TA11 OR; -B COTAB3 PO; -CALC-187 PO; -CARV12.5 PO; +CARV6.252 PO; -CETI10 PO; +CHOL1TAB29 PO; +CO Q200C PO; -COQ1200C3 OR; -CRES10TA PO; +DEXT1TAB18 PO; +DIGO0.12 PO; +DIPH-148 PO; +DIPH1TAB36 PO; -FOSI10TA4 PO; +FURO1TAB60 PO; -FURO1TAB93 OR; -GLUCTAB PO; +K-TA10TA PO; -LEVO.1 PO; +METF500T4 PO; +METO2.5T PO; +MOME17I EACH NARE; -MULTCAP2 OR; -PROZ20CA11 PO; +ROSU10 PO; +SPIR25TA PO; +SYNT112T PO; +VALT1TAB PO; -VALT1TAB26 PO; -VITA200017 PO; -VITATAB11 PO; +WALKER WHEELS/F1 MIS; +ZYRT10TA PO
[2017-05-07] MEDS ORDERED: Hold AM Insulin & AM Hypoglycemic medications in diabetic patients PRN (06:15)
[2017-05-07] MEDS ORDERED: MUPIROCIN 2% OINT 1 APPLIC/GM SYR NASAL SCH (06:15)
[2017-05-07] MEDS ORDERED: CHLORHEXIDINE GLUCONATE 2 % 1 PACK (2 CLOTHS) TOPICAL SCH (06:15)
[2017-05-07] MEDS ORDERED: NO Heparin, Lovenox, Coumadin at least 12 hours prior to procedure. PRN (06:15)
[2017-05-07] MEDS ORDERED: ceFAZolin 2 GM PREMIX 50 ML IV SCH (06:15)
[2017-05-07] MEDS ORDERED: POVIDONE IODINE 5% (ANTISEPSIS KIT) 4 APPLICATIONS EACH NARE SCH (06:15)
[2017-05-07] MEDS ORDERED: LACTATED RINGER'S 1000 ML IV PRN (06:30)
[2017-05-07] MEDS ORDERED: POVIDONE IODINE 5% (ANTISEPSIS KIT) 4 APPLICATIONS EACH NARE PRN (06:30)
[2017-05-07] MEDS ORDERED: INSULIN HUMAN REGULAR 1,000 UNITS/10 ML VIAL SQ PRN (06:30)
[2017-05-07] MEDS ORDERED: SODIUM CHLORID 0.9% 500 ML IV PRN (06:30)
[2017-05-07] MEDS ORDERED: METOPROLOL TARTRATE 25 MG TAB PO PRN (06:30)
[2017-05-07] MEDS ORDERED: CHLORHEXIDINE GLUCONATE 2 % 1 PACK (2 CLOTHS) TOPICAL PRN (06:30)
[2017-05-07] MEDS ORDERED: VANCOMYCIN HCL 1000 MG VIAL ONE (07:14)
[2017-05-07] MEDS ORDERED: SODIUM CHLOR 0.9% 250 ML INJ 250 ML ONE (07:14)
[2017-05-07] MEDS ORDERED: MIDAZOLAM HCL 2 MG/2 ML VIAL ONE (07:33)
[2017-05-07] MEDS ORDERED: VANCOMYCIN 500 MG VIAL ONE (07:47)
[2017-05-07] MEDS ORDERED: LIDOCAINE HCL 2% 50 ML VIAL ONE (07:47)
[2017-05-07 07:53] LABS: AUTOMATED NEUTROPHIL # 5.7 TH/MM3 (1.8-7.7); BASOPHIL # 0.1 TH/MM3 (0-0.2); BASOPHIL % 0.7 % (0.0-2.0); EOSINOPHIL # 0.1 TH/MM3 (0-0.4); EOSINOPHIL % 1.3 % (0.0-4.0); HEMATOCRIT 36.2 % (35.0-46.0); HEMO FLAGS DIFF FINAL; LYMPH % 27.8 % (9.0-44.0); LYMPHOCYTE # 2.6 TH/MM3 (1.0-4.8); MEAN CELL VOLUME 93.3 FL (80.0-100.0); MEAN CORPUSCULAR HEMOGLOBIN 31.5 PG (27.0-34.0); MEAN CORPUSCULAR HGB CONC 33.8 % (32.0-36.0); MONO % 8.6 % (0.0-8.0); NEUT % 61.6 % (16.0-70.0); PLATELET COUNT 193 TH/MM3 (150-450); RED BLOOD COUNT 3.88 MIL/MM3 (4.00-5.30); RED CELL DISTRIBUTION WIDTH 13.7 % (11.6-17.2); WHITE BLOOD COUNT 9.3 TH/MM3 (4.0-11.0)
[2017-05-07 08:06] LABS: APTT (PATIENT) 29.2 SEC (24.3-30.1); INTERNATIONAL NORMALIZED RATIO 1.1 RATIO; PROTHROMBIN TIME - PATIENT 11.7 SEC (9.8-11.6)
[2017-05-07 08:22] LABS: POTASSIUM 3.8 MEQ/L (3.5-5.1)
[2017-05-07] MEDS ORDERED: ACETAMINOPHEN/CODEINE 300 MG/30 MG TAB PO PRN ×2 (08:30)
[2017-05-07] MEDS ORDERED: ONDANSETRON HCL 4 MG/2 ML VIAL IV PRN (08:30)
[2017-05-07] MEDS ORDERED: CEPH-460 PO (08:32)
[2017-05-07] MEDS ORDERED: HYDR-3366 PO (08:32)
[2017-05-07 08:42] VITALS: BP 100/57; PULSE 60; RESP 16; TEMP 97.8; O2SAT 98
--- NOTE | 2017-05-07 08:45 | CATHPROC ---
[employer] HIS Report Study Information Study Number Admission Scheduled Start Study Start [id number] May 07 2017 5:59AM 05/07/2017 May 07 2017 7:34AM [employer] Cardiac Pacer/ICD Admit Source Facility Department Other [facility] - Ur Coordinator Physician and Clinical Staff Initial Andres Strong Work From Home Eliz Trinidad RN Other Anesthesia, MAINTENANCE DIRECTOR Recorder Blair Vuong,RT(R) ScrBri Walker,RT(R) TECH2 Equipment Time Soft Work Wrapper Examiner Description Size Mfg Part Number Used/Scraped DERMABOND, ADHESIVE SKIN [id number] 07:53 CORDIS/PACER * Used GLUE MINI *[id number] 07:53 MEDLINE INDUSTRIES SUTURE, STRIP PLUS 1/2" * Used *[id number] 07:53 MEDLINE PACER SHIELDS, LIMB * 2530 *[id number] Used [id number] 07:53 MEDLINE PACER PACK, PACER CUSTOM * Used *[id number] 07:57 Needle Sponge Count 1 1 Used 07:57 Needle Sponge Count 1 111 Used 07:57 Needle Sponge Count 20 200 Used SUTURE, 2-0 VICRYL [CT1] (PER427I) [id number] 07:53 [employer],WARM AIR CCL * Used *[id number] 08:19 [employer] MEDICAL DEFIBRILLATOR, UNIFY ASSURA VVED-DDDRV [id number] Used [facility] PAD, ELECTROSURGICAL 07:53 * [id number] *[id number] Used SURGICAL GROUNDING ORANGE 07:53 VITATRON MEDTRONIC PLASMABLADE, PEAD 3.0S * [id number] Used Equipment Model, Serial, Lot Number and Expiration Data Description Model Number Serial Number Lot Number Expiration Date DEFIBRILLATOR, UNIFY ASSURA [id number] 11-29-2018 History: Allergies Allergy Reaction codeine NAUSEA epinephrine PVC'S MRI PRECAUTION NON CONDITIONAL ICD 10/01/16 KMD PAPER TAPE BLISTERS History: Risk Factors Hypertension Previous Heart Failure Yes Yes Diabetes Medication Medication Total Dose (Bolus/Oral) Medication Total Dosage/Unit 2% XYLOCAINE 50 mL Medications (Bolus/Oral) Medication Time Given Dosage/Unit Administered By Reason 2% XYLOCAINE 05/07/2017 8:14:28 AM 50 mL Andres Martell 50 mL 2% XYLOCAINE given in lab by Andres Martell in Left upper chest via Subcutaneous. Ordered by Andres Gonzales. Medication (Drip) Medication Time Given Dosage/Unit Concentration/Unit Diluent (ml) Solution ANCEF 05/07/2017 7:44:38 AM 2 g 2 g ANCEF given in lab by Anesthesia, MAINTENANCE DIRECTOR in Right Forearm via Peripheral IV. Ordered by Jaime Martell. Reason: As per physicians verbal order. VANCOMYCIN DRIP 05/07/2017 7:44:37 AM 1 g 1 g VANCOMYCIN DRIP given in lab by Anesthesia, MAINTENANCE DIRECTOR in Right Forearm via Peripheral IV. Ordered by Andres Dawson. Reason: As per physicians verbal order. Initial Case Assessment Cardiovascular HR Rhythm NIBP Chest Pain 75 vp design 96/61 0 Edema Present Skin color Skin None Normal Warm Dry Circulatory - Right Pulses Radial 2 Scale (0,1,2,3,4,d) Circulatory - Left Pulses Radial 2 Scale (0,1,2,3,4,d) Circulatory - Lower Extremities Color Lower Right Color Lower Left Normal Normal Neurological State Oriented to time-place- Alert Moves all extremities person Respiration - General Respiration Rate SpO2 (%) (B/min) 20 100 Final Case Assessment Cardiovascular HR Rhythm NIBP Chest Pain 64 vp design 90/51 0 Edema Present Skin color Skin None Normal Warm Dry Circulatory - Right Pulses Radial 2 Scale (0,1,2,3,4,d) Circulatory - Left Pulses Radial 2 Scale (0,1,2,3,4,d) Circulatory - Lower Extremities Color Lower Right Color Lower Left Normal Normal Neurological State Oriented to time-place- Alert Moves all extremities person Respiration - General Respiration Rate SpO2 (%) O2 (lpm) (B/min) 16 96 6 Chronological Log Time Study Chronological Log 7:34:26 Patient arrived via Bed. Dr. Martell is aware labs are pending and pt took eloquis last night at 0900. 7:34:31 Patient Name, D.O.B, / Armband Verified By R.N. 7:34:32 Consent signed by the physician and the patient and verified by the Ur Coordinator staff. 7:34:33 Pre-op and post- op instructions given; patient acknowledges understanding of instructions. 7:35:13 Verbal Stimulation=2 Physical Stimulation=2 Airway=2 Respiration=2 TOTAL=8. (0=absent, 1=li mited, 2=present) 7:35:26 Anesthesia at bedside. Assumes care of patient. Demian 7:35:28 Presedation assessment performed by Ur Coordinator RN. 7:35:29 Patient has been NPO for More than 6Hrs. 7:35:31 Skin Breakdown/none per patient 7:35:46 Patient Warmer Placed on the Table. 7:35:47 Disposable Defibrillator Pads Placed On Patient. 7:35:47 Marlin Prominences Protected 7:39:55 [employer] reps present 7:44:17 A # 20 IV was noted in the Forearm (right). Grade = 0 0.9ns kvo 7:44:18 History and physical on the chart or being dictated. Assessment: Initial Case, HR=75 BPM, Rhythm=vp design, NIBP=96/61 mmhg, Chest Pain=0, Edema=None, Color =Normal, Skin = Warm, Dry Right Pulses: Radial=2 Left Pulses: Radial=2 7:44:19 Lower Right Extremities: Color=Normal Lower Left Extremities: Color=Normal Neurological: State=Alert, Ox3, SOUZA Respiration: Resp=20 B/min, MjY9=633 % 7:44:21 Table restraints applied according to hospital policy 1 g VANCOMYCIN DRIP given in lab by Anesthesia, MAINTENANCE DIRECTOR in Right Forearm via Peripheral IV. Ordered by Andres Martell. 7:44:37 Reason: As per physicians verbal order. 2 g ANCEF given in lab by Anesthesia, MAINTENANCE DIRECTOR in Right Forearm via Peripheral IV. Ordered by Andres Martell. Reason: As 7:44:38 per physicians verbal order. First Sponge And Instrument Count Done by Bri Frausto, RT(R) TECH2. 7:50:36 Hypo's: 1, Sponges: 20, Bovie/scratch: 1 Sutures: 3, Blades: 1, Instruments: 26, Syveck Patches: 0 Verified w DB. 7:56:06 Tachy therapy off 7:59:50 Reference ECG taken 8:01:07 paged 8:11:34 MD arrived. Time Out. Correct patient, procedure, procedure equipment, site and side verified with physician present. Time 8:13:05 concurred by MD, individual staff and MAINTENANCE DIRECTOR. Time Out #2 - Consents verified, patient in correct position, all results are labled and display ed, safety precautions 8:13:31 taken, antibiotics administered. Time out concurred by MD, individual staff and MAINTENANCE DIRECTOR in procedur e 8:13:56 Case Start 8:14:28 50 mL 2% XYLOCAINE given in lab by Andres Martell in Left upper chest via Subcutaneous. Order ed by Andres Martell. 8:15:30 Surgical Incision Made. 8:15:45 A pocket was created at the L Upper Chest. 8:17:42 Pocket flushed with antibiotic solution 8:18:09 A device was explanted. 8:19:28 A DEFIBRILLATOR, UNIFY ASSURA VVED-DDDRV was connected and placed in the pocket. Second Sponge And Instrument Count Done by Bri Frausto, RT(R) TECH2. 8:21:49 Hypo's: 1, Sponges: 20, Bovie/scratch: 1 Sutures: 3, Blades: 1, Instruments: 26, Syveck Patches: 0 Verified w DB. 8:22:54 The pocket was closed. 8:26:19 DOCU called. Spoke to Ni 8:26:35 Bedside Report will be given. 8:37:22 Steri-strips and a sterile dressing applied to site. Final Sponge And Instrument Count Done by Bri Frausto, RT(R) TECH2. 8:37:28 Hypo's: 1, Sponges: 20, Bovie/scratch: 1 Sutures: 3, Blades: 1, Instruments: 26, Syveck Patches: 0 Verified w DB. Assessment: Final Case, HR=64 BPM, Rhythm=vp design, NIBP=90/51 mmhg, Chest Pain=0, Edema=None, Color=N ormal, Skin = Warm, Dry Right Pulses: Radial=2 Left Pulses: Radial=2 8:37:55 Lower Right Extremities: Color=Normal Lower Left Extremities: Color=Normal Neurological: State=Alert, Ox3, SOUZA Respiration: Resp=16 B/min, SpO2=96 %, O2=6 lpm 8:40:00 Case End 8:40:02 No case complications noted. 8:40:03 Cine recording checked. 8:40:11 Implant Procedure was performed. 8:40:20 A Bivent ICD Implant . (Dual) 8:42:22 Defibrillator and ground pads removed. Skin intact. 8:50:25 Patient moved to stretcher End Study - Contrast Media Used In Study Contrast Total Opened (mL) Total Used (mL) Total Wasted (mL) Unspecified 0 0 0 End Study - Radiation Exposure Fluoro Time (minutes) 0.1 End Study - Patient Disposition Complications Transferred To Interventional Outcome No Telemetry Bed successful
--- NOTE | 2017-05-07 09:05 | MP ---
cc: CATHERINE LLANES M.D. DATE OF SURGERY: 05/07/2017 PROCEDURE Biventricular pacer defibrillator removal, biventricular pacer defibrillator replacement and pocket revision. INDICATION Mrs. Polo is a 72-year-old female with a history of atrial fibrillation, congestive heart failure and cardiomyopathy. She had a previous biventricular pacer defibrillator implanted in 2006. The generator is currently end-of-life. She is admitted for generator replacement and device testing. The risks, the nature and the benefit of the procedure were clearly stated to her. The risks include pneumothorax, cardiac perforation, stroke, need for open heart surgery and even . She understood and agreed to proceed. DETAILS OF PROCEDURE After written informed consent was obtained, the patient was brought to the EP lab where she was prepped and draped in the usual sterile fashion. Conscious sedation was initiated and maintained throughout the procedure by the anesthesiologist. Once sedation was verified the left infraclavicular area over the existing generator was anesthetized with 2% Xylocaine. Using plasma blade a 3 cm incision was made over the existing generator. Dissection was then taken down to the fascial layer using Bovie cautery and blunt dissection. Once exposed the generator was removed from the pocket. Scar tissue was removed around the lead. The pocket was expanded. Pocket revision was performed. Then the leads were disconnected and tested. After adequate pacing and sensing thresholds were obtained, the pocket was copiously irrigated with antibiotic solution. The leads were connected to the new generator and placed into the pocket. I did proceed with wound closure. The fascial layer was approximated using 2-0 Vicryl suture in a continuous fashion. The subcutaneous layer was approximated using 2-0 Vicryl suture in a continuous fashion. The subcuticular layer was approximated using 2-0 Vicryl suture in a continuous fashion. Dermabond adhesive was applied to the wound followed by a sterile pressure dressing. There was no complication. The patient tolerated the procedure. Blood loss minimal. EXPLANTED HARDWARE The explanted defibrillator is a [employer], model [id number], serial number [id number]. IMPLANTED HARDWARE The implanted defibrillator generator is a [employer], model PW4750-30J, serial number [id number]. THRESHOLDS The right atrial pacing threshold in the bipolar mode was 1.5 volts at 0.5 milliseconds. Lead impedance 410 ohms. P-wave at 2.4 millivolts. The right ventricular pacing threshold in the bipolar mode was 0.75 volts at 0.5 milliseconds. Lead impedance 430 ohms. R-wave at 12 millivolts. The left ventricular pacing threshold in the bipolar mode was 1 volt at 0.5 milliseconds. Lead impedance 760 ohms. SETTINGS The device is set in a DDD 60, upper limit 120 beats per minute. LV first by 40 milliseconds. Defibrillatory portion for two zones, one zone for ventricular tachycardia between 160 and 240 beats per minute. Initial therapy consists of one burst of ATP, one RAMP, 81%, 10 pause, 70 second incremental, followed by 20 then 30 and also subsequent shocks at 40 joules defibrillatory shock. The second zone is for ventricular fibrillation above 240 beats per minute. The first therapy at 30 and all subsequent shocks at 40 joules defibrillatory shock. CONCLUSIONS Successful biventricular defibrillator removal, biventricular pacer defibrillator replacement and device testing. This is secondary prevention. The patient had a defibrillatory shock in July 2016 due to ventricular tachycardia. Ejection fraction is 20% on optimal medical treatment for over 10 years. COMMENT/RECOMMENDATION The patient is going to be transferred to the telemetry unit. She will be observed and can be discharged home later today. Catherine Llanes MD HS/BT /8:25 AM /8:41 AM
== END 2017-05-07 11:42 | disposition home or self-care (01) ==
LOC: HDIC 05:59 → HDOC 05:59
PROVIDERS: ATTEND Internal Medicine Interventional Cardiology
DX: Z45.02 Encounter for adjustment and management of automatic implantable cardiac defibrillator (principal); I11.0 Hypertensive heart disease with heart failure; I50.9 Heart failure, unspecified; I42.9 Cardiomyopathy, unspecified; I48.2 Chronic atrial fibrillation; Z79.01 Long term (current) use of anticoagulants
CPT/HCPCS: 00530; 33264; 80048; 85025; 85610; 85730; C1882; J0690; J2250; J3010; J3370; J7050